=== PATIENT | female | born 1955 | race Caucasian/White ===

== ENCOUNTER 2020-12-27 08:56 | Outpatient (CLI) | payer MEDICARE, SELFPAY ==
--- NOTE | ~2020-12-27 | US_ITS ---
EXAMINATION: US thyroid EXAM DATE: 12/27/2020 09:55 INDICATION: E04.1 - Nontoxic single thyroid nodule. TECHNIQUE: Multiple grayscale and Doppler images of the thyroid were obtained (by a technologist who performed the scan) and subsequently reviewed. Individual nodules and recommendations may be reporte d in accordance with TI-RADS system as designated by the 2017 ACR White Paper TI-RADS committee. Comp chris is made to prior examination from 08/23/2017. FINDINGS: The right thyroid lobe measures 6.5 x 2.0 x 3.2 cm, the left measuring 6.1 x 1.4 x 2.2 cm. These rosita urements are moderately enlarged. Mildly diffusely heterogeneous thyroid echogenicity with multiple t hyroid nodules bilaterally. The largest 2 nodules are in the right thyroid lobe, with some scattered echogenic foci along the wal ls of cystic portions, category TR 4. Both demonstrate hypervascularity. The right thyroid lobe super ior nodule measures 2.6 x 1.4 x 2.3 cm (previously 3.1 x 1.3 x 2.5) and more inferior nodule measures 2.5 x 1.6 x 2.0 cm (previously 2.0 x 1.4 x 2.7). These dimensions are not significantly changed acco unting for differences in technique. The left thyroid lobe nodules are subcentimeter. IMPRESSION: Multinodular goiter, nodule size unchanged. Largest 2 could be considered for ultrasound-guided biops y. Reviewed, dictated and finalized at location A. IMPRESSION: Multinodular goiter, nodule size unchanged. Largest 2 could be considered for u ltrasound-guided biopsy.
--- NOTE | ~2020-12-27 | MM_ITS ---
EXAMINATION: MM screening juanpablo BI w gold HISTORY: Screening TECHNIQUE: Craniocaudal and mediolateral oblique 3-D tomosynthesis images were obtained and synthetic 2-D images were generated. CAD analysis was submitted and interpreted. COMPARISON: Comparison to multiple prior studies sequentially, with oldest reviewed study dated 07/26. BREAST PARENCHYMAL COMPOSITION: There are scattered areas of fibroglandular density. FINDINGS: There is a developing mass in the upper aspect of the right breast measuring 3 mm on MLO vi ew. The left breast is stable without evidence for malignancy. IMPRESSION: 1. Developing right breast mass. 2. Additional mammographic views and possible breast ultrasound are recommended. BI-RADS Category 0: Incomplete: Needs additional imaging evaluation. Reviewed, dictated and finalized at location A. IMPRESSION: 1. Developing right breast mass. 2. Additional mammographic views and possible breast ultrasound are recommended . BI-RADS Category 0: Incomplete: Needs additional imaging evaluation.
--- NOTE | ~2020-12-27 | DEXA_ITS ---
Bone Density Report Name: Kylie Galo Age: 65 Sex: Female Ethnicity: White Date of : 1955 Indication: postmenopausal; height loss; prior fracture; Referring Provider: EMEKA KRISHNAN Study: Bone densitometry was performed. Exam Date: December 27, 2020 Accession number: [id number] Bone Density: Region BMD T-score Z-score Classification AP Spine (L1-L4) 0.936 -1.0 0.8 Normal Femoral Neck (Left) 0.672 -1.6 -0.1 Osteopenia Total Hip (Left) 0.768 -1.4 -0.2 Osteopenia Total Hip Bilateral Avg 0.737 -1.7 -0.4 Osteopenia Femoral Neck (Right) 0.680 -1.5 0.0 Osteopenia Total Hip (Right) 0.705 -1.9 -0.7 Osteopenia World Health Organization criteria for BMD impression classify patients as: Normal (T-score at or above -1.0), Osteopenia (T-score between -1.0 and -2.5), or Osteoporosis (T-score at or below -2.5). 10-year Fracture Risk(1): Major Osteoporotic Fracture 15% Hip Fracture 1.6% Reported Risk Factors: [place] (), Neck BMD=0.680, BMI=28.5, previous fracture (1) FRAX(R) Version 3.08. Fracture probability calculated for an untreated patient. Fracture probability may be lower if the patient has received treatment. Clinical Information Provided by Patient: Has had a low trauma fracture Patient maximum height was 65 Menopause Age: 55 No regular weight bearing exercise Onset of menses at age 12 Number of children 3 Impression: The patient has low bone mass, based on the Right Total Hip T-score. The patient has an estimated ten-year risk of hip fracture of 1.6% and an estimated ten-year risk of major fracture of 15%, based on the WHO FRAX algorithm. The patient has risk factors, including: previous fracture. Discussion: BONE DENSITY IS LOW AT ONE OR MORE SKELETAL SITES. This patient's lowest T-score is low at one or more skeletal sites. It meets the World Health Organization's (WHO) criteria for ?low bone mass? (T-score between -1.0 and -2.5). The patient's 10-year risk of fracture as calculated by FRAX is less than the threshold where pharmacological therapy is recommended by the National Osteoporosis Foundation (NOF). However, all treatment decisions require clinical judgment and consideration of individual patient factors, including patient preferences, comorbidities, previous drug use, risk factors not captured in the FRAX model (e.g., frailty, falls, vitamin D deficiency, increased bone turnover, interval significant decline in bone density) and possible under or overestimation of fracture risk by FRAX. The patient should follow a healthful lifestyle (good nutrition with adequate calcium and vitamin D, and appropriate weight-bearing exercise). Follow-Up: Consider repeating this study in 2 to 3 years to reassess this patient's status, or sooner if there is some new clinical indication. Reported
--- NOTE | ~2020-12-27 | XR_ITS ---
EXAMINATION: XR hand LT min 3V DATE: 12/27/2020 10:04 INDICATION: Fall with pain at the left fifth digit. TECHNIQUE: Posteroanterior, oblique and lateral views of the left hand were obtained. COMPARISON: None. FINDINGS: Diffuse osteopenia. Alignment is normal. No fracture. Polyarticular osteoarthritis, mild to moderate severity at the first carpometacarpal joint and mild at the wrist, midcarpal, triscaphe and multiple metacarpophalangeal and interphalangeal joints. Soft tissues are unremarkable. IMPRESSION: 1. 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 No acute osseous abnormality. Reviewed, dictated and finalized at location A. IMPRESSION: 1. Polyarticular osteoarthritis throughout the left hand and wrist, mild to mod erate at the first carpometacarpal joint and otherwise mild. No acute osseous a bnormality.
--- NOTE | ~2020-12-27 | XR_ITS ---
EXAMINATION: XR lumbar spine min 4V DATE: 12/27/2020 10:04 INDICATION: Low back pain TECHNIQUE: Anteroposterior, lateral, and bilateral oblique views of the lumbar spine, and cone-down l ateral view of the lumbosacral junction were obtained. COMPARISON: None. FINDINGS: There is no fracture, dislocation, or subluxation. The vertebral body heights and alignment are normal. There is moderate loss of intervertebral disc space height at L5-S1. Small degenerative osteophytes project from the anterior endplates of multiple vertebral bodies. Moderate to severe face t osteoarthritis is present in L4-5 and L5-S1. The bowel gas pattern is normal. There is a right pelv ic phlebolith. Severe right hip osteoarthritis is noted. IMPRESSION: 1. Moderate lower lumbar spondylosis without acute findings. Reviewed, dictated and finalized at location B.
--- NOTE | ~2020-12-27 | XR_ITS ---
EXAMINATION: XR hip RT min 2V DATE: 12/27/2020 10:04 INDICATION: Right hip pain. TECHNIQUE: 2 views of right hip were obtained. COMPARISON: Right hip radiographs 04/01/2018 FINDINGS: Bone alignment is normal. No fracture. There is severe right hip osteoarthritis. IMPRESSION: 1. Severe right hip osteoarthritis, worsened from 04/01/2018. Reviewed, dictated and finalized at location A.
== END 2020-12-27 08:57 | disposition home or self-care (01) ==
LOC: ANHIMG 09:00
PROVIDERS: PCP Family Medicine; Visit Provider Family Medicine
DX: Z12.31 Encounter for screening mammogram for malignant neoplasm of breast (principal); Z78.0 Asymptomatic menopausal state; R29.6 Repeated falls; E04.2 Nontoxic multinodular goiter; M47.896 Other spondylosis, lumbar region; M19.042 Primary osteoarthritis, left hand; M16.11 Unilateral primary osteoarthritis, right hip; R92.8 Other abnormal and inconclusive findings on diagnostic imaging of breast; M85.852 Other specified disorders of bone density and structure, left thigh; M85.851 Other specified disorders of bone density and structure, right thigh
CPT/HCPCS: 72110; 73130; 73502; 76536; 77063; 77067; 77080

== ENCOUNTER 2021-02-01 10:55 | Outpatient (CLI) | payer MEDICARE, SELFPAY ==
--- NOTE | ~2021-02-01 | MMUS_ITS ---
EXAMINATION: MM diagnostic mammo unilat RT, US breast RT limited HISTORY: Follow-up right breast mass TECHNIQUE: Additional 3-D tomosynthesis images of right were performed and synthetic 2-D images were generated. CAD analysis was submitted and interpreted. High resolution Limited right breast ultrasoun d was performed. COMPARISON: Comparison to multiple prior studies sequentially, with oldest reviewed study dated 07/26. BREAST PARENCHYMAL COMPOSITION: Breast composed of scattered areas of fibroglandular density. FINDINGS: MAMMOGRAPHIC FINDINGS: There are no suspicious masses, calcifications or architectural distortion to suggest malignancy. ULTRASOUND: Right breast ultrasound: At 12:00, 2 cm from the nipple, there is a 3 mm cyst. No suspicious masses t o suggest malignancy. IMPRESSION: 1. No evidence for malignancy in the right breast. 2. Routine yearly screening mammogram and regular clinical breast examination are recommended. BI-RADS Category 2: Benign finding(s). Reviewed, dictated and finalized at location A. IMPRESSION: 1. No evidence for malignancy in the right breast. 2. Routine yearly screening mammogram and regular clinical breast examination a re recommended. BI-RADS Category 2: Benign finding(s).
== END 2021-02-01 10:56 | disposition home or self-care (01) ==
PROVIDERS: PCP Family Medicine; Visit Provider Physician Assistant
DX: R92.8 Other abnormal and inconclusive findings on diagnostic imaging of breast (principal)
CPT/HCPCS: 76642; 77065

== ENCOUNTER 2021-03-24 11:22 | Outpatient (CLI) | payer MEDICARE, SELFPAY ==
[2021-03-24 12:48] LABS: Thyroid Stimulating Hormone 0.201 uIU/mL (0.465-4.680)
[2021-03-24 13:33] LABS: Free T4 Free Thyroxine 1.15 ng/mL (0.78-2.19)
[2021-03-27 07:34] LABS: Triiodothyronine T3 Free 3.2 pg/mL (2.3-4.2)
[2021-03-29 14:15] LABS: Thyroid Stimulating Immunoglob <89 % baseline (<140)
== END 2021-03-24 11:23 | disposition home or self-care (01) ==
PROVIDERS: PCP Family Medicine; Visit Provider Internal Medicine Endocrinology, Diabetes & Metabolism
DX: E04.1 Nontoxic single thyroid nodule (principal); E05.90 Thyrotoxicosis, unspecified without thyrotoxic crisis or storm
CPT/HCPCS: 36415; 84439; 84443; 84445; 84481

== ENCOUNTER 2021-04-04 13:29 | Outpatient (CLI) | payer MEDICARE, SELFPAY ==
--- NOTE | ~2021-04-04 | XR_ITS ---
EXAMINATION: XR lg joint inject/asp w image DATE: 04/04/2021 14:29 INDICATION: Right hip arthritis. TECHNIQUE: A time-out was performed to verify the patient's name, date of , and procedure to b e performed. The procedure including the risks, benefits, and alternatives was discussed with the pat ient. Risks discussed included bleeding and infection. The patient understood the risks and agreed to proceed. The skin overlying the right hip joint was prepped and draped in usual sterile fashion. A nesthetic was administered with 1% lidocaine subcutaneously. A 22 G needle was advanced under fluoro scopic guidance into the joint. Injection of 1 mL of Omnipaque 240 confirmed intra-articular positio n of the needle. Subsequently, injectate consisting of 2 mL 0.5% bupivacaine and 1 mL 80 mg/mL Depo- Medrol was instilled. The needle was removed and the entry site was cleaned and dressed. There were no immediate complications. Fluoroscopy exposure time was 0.0 minutes. The total number of images wa s 2. FINDINGS: Real-time fluoroscopy demonstrates the needle in the right hip joint. Patient's pain prior to procedure:11/08. Patient's pain following the procedure: 07/11. IMPRESSION: 1. Fluoroscopy guided right hip joint injection of local anesthetic and steroid with decrease in the patient's presenting pain. Reviewed, dictated and finalized at location A.
== END 2021-04-04 13:30 | disposition home or self-care (01) ==
LOC: ANHIMG 13:36
PROVIDERS: PCP Family Medicine; Visit Provider Nurse Practitioner Family
DX: M16.11 Unilateral primary osteoarthritis, right hip (principal)
CPT/HCPCS: 20610; 77002; J1040; Q9966

== ENCOUNTER 2021-04-05 13:37 | Outpatient (CLI) | payer MEDICARE, SELFPAY ==
--- NOTE | ~2021-04-05 | NM_ITS ---
EXAMINATION: NM thyroid scan w uptake DATE: 04/06/2021 16:12 INDICATION: Subclinical hyperthyroidism. Thyroid nodules. COMPARISON: Thyroid ultrasound 12/27/2020 TECHNIQUE: 0.348 mCi I-123 was administered orally. Scintigraphic images of the thyroid gland were o btained at 24 hours. Thyroid uptake was calculated by the technologist. FINDINGS: The thyroid uptake is 21% (normal 10-30%), with the right lobe measuring 16% uptake and the left 6%. There is no focal area of decreased or increased activity to suggest hypofunctioning or hyperfunction ing nodule. The right thyroid lobe is larger than the left by ultrasound. IMPRESSION: 1. Normal thyroid scintigraphy and 24-hour iodine uptake. Reviewed, dictated and finalized at location A.
== END 2021-04-05 13:38 | disposition home or self-care (01) ==
PROVIDERS: PCP Family Medicine; Visit Provider Internal Medicine Endocrinology, Diabetes & Metabolism
DX: E04.9 Nontoxic goiter, unspecified (principal); E05.90 Thyrotoxicosis, unspecified without thyrotoxic crisis or storm
CPT/HCPCS: 78014; A9516

== ENCOUNTER 2021-04-14 02:18 | Day surgery (SDC) | payer MEDICARE, SELFPAY ==
[2021-04-04 10:16] VITALS: BMI 28.6
--- NOTE | 2021-04-12 10:36 | PM.IMHP ---
H&P: HPI History of Present Illness Date/Time: 04/12/21 10:36 Chief Complaint: Left foot pain Narrative: Pt states that she noticed pain in her Lt 2nd and 5th toes about 3-4mo ago. Pt states no injury at that time, however, she states that she has stubbed her Lt 2nd toe several times. Pt states that her 5th toe has a bunionette forming and is starting to become painful with activity. Pt states that she has had inserts made several years ago from [employer]. Pt states that the inserts do help, but they are worn. Pt also denies any numbness/tingling or radiation of pain. Pt has history of bilateral plantar fascia injections by Dr. Allen in 2006 and had bilateral knee arthroscopies by him in 2005. Location: Left 2nd toe and 5th toe Duration: 3-4 months Characteristics of symptom or complaint: pain Aggravating or associated factors: prolonged activity Relieving factors: Rest, tylenol arthritis Review of Systems Constitutional: Constitutional: Denies fever(s) Eyes: Eyes: Denies blurry vision ENT: Reports Normal hearing present Cardiovascular: Cardiovascular: Denies chest pain and Denies dyspnea Respiratory: Respiratory: Denies dyspnea and Denies wheezing Gastrointestinal: Gastrointestinal: Denies abdominal pain Genitourinary: Genitourinary: Denies urinary urgency Musculoskeletal: Musculoskeletal: Reports as per HPI and Denies numbness Integumentary/Breasts: Skin/Breast: Denies changing lesions and Denies sores Neurologic: Reports Normal hearing present, Denies behavioral changes, Denies confusion, Denies numbness and Denies convulsions Psychiatric: Psychiatric: Denies behavioral changes, Denies confusion and Denies hallucinations Endocrine: Endocrine: Denies heat intolerance Hematologic/Lymphatic: Hematologic/Lymphatic: Denies easy bleeding Allergic/Immunologic: Allergic/Immunologic: Denies wheezing PMFSH Past Medical History Medical History Arthritis Bunionette of left foot Clawtoe, acquired Degenerative joint disease (DJD) of hip Frequent falls Goiter Hammertoe of second toe of left foot History of anesthesia problem Low back pain Mixed hyperlipidemia Seasonal allergies Thyroid Nodule Surgical History Surgical History H/O arthroscopic knee surgery Right knee 2005 Dr. Allen Left knee 2006 Dr. Alejandro H/O breast biopsy 2003 H/O dilation and curettage 1989 Dr. Garcia H/O tubal ligation 1983 Dr. Ruiz History of tonsillectomy 1963 Family History Family History Father CHF (congestive heart failure) Skin cancer Mother CHF (congestive heart failure) Atrial fibrillation Hypertension Cerebrovascular accident Sibling Childhood asthma Daughter Hypertension Diabetes mellitus Cerebrovascular accident Other Arthritis Asthma Heart disease Thyroid disease Social History Social History Smoking status: Never smoker Second hand tobacco smoke exposure: Yes Alcohol intake: never Substance use: never Substance use type: does not use Additional living arrangements comments: SON & AUNT WITH PT Gender identity (if verbalized by the patient): Female Spiritual care concerns: No Agree to blood products: Yes Meds Home Medications and Allergies Home Medications Medication Instructions Recorded Confirmed Type aspirin 81 mg tablet,delayed 81 mg PO DAILY 11/15/20 04/04/21 History release carboxymethyl 0.5 %-glycerin 1 1 drp EACH EYE Q2-4H PRN 11/15/20 04/04/21 History %-polysorb 80 0.5 %-PF eye dropperette diclofenac sodium 1 % topical gel 2 g TOPICAL QID PRN 11/15/20 04/04/21 History docusate sodium 100 mg capsule 100 mg PO DAILY 11/15/20 04/04/21 History fluticasone propionate 50 2 spray INTRANASAL HS 11/15/20 04/04/21 History mcg/actuation nasal
--- NOTE | 2021-04-13 14:07 | WPDANESEPPF ---
Anes - Initial Pre Proc Eval Procedure: Operation Date: 04/14/21 11:00 Proposed Procedures p Left Second Toe Crossover Correction with Arthrodesis - Bijan Muñoz MD s Left Bunionette Correction - Bijan Muñoz MD Date/Time: 04/13/21 14:07 Surgeon: Bijan Muñoz MD Pre Op Diagnosis: Left second cross over toe, bunionette Patient Data Age: 65 Gender: F Height: 1.65 m Weight: 78 kg Allergies Allergy/AdvReac Type Severity Reaction Status Date / Time poison dirk extract Allergy Mild Rash Verified 04/14/21 09:13 thiopental [From Pentothal] AdvReac Severe SEVERE/PROLONGED Verified 04/14/21 09:13 NAUSEA AND VOMITING Home Medications Medication Instructions Recorded Confirmed Type aspirin 81 mg tablet,delayed 81 mg PO DAILY 11/15/20 04/14/21 History release carboxymethyl 0.5 %-glycerin 1 1 drp EACH EYE Q2-4H PRN 11/15/20 04/14/21 History %-polysorb 80 0.5 %-PF eye dropperette diclofenac sodium 1 % topical gel 2 g TOPICAL QID PRN 11/15/20 04/04/21 History docusate sodium 100 mg capsule 100 mg PO DAILY 11/15/20 04/14/21 History fluticasone propionate 50 2 spray INTRANASAL HS 11/15/20 04/14/21 History mcg/actuation nasal spray,suspension acetaminophen 650 mg 1,300 mg PO Q12H PRN tablet 02/16/21 04/14/21 History tablet,extended release cholecalciferol (vitamin D3) 125 mcg PO DAILY 04/04/21 04/14/21 History Patient hx anesthesia problems: none Family hx anesthesia problems: none Results Review: All pre-operative results and documents have been reviewed as part of the pre-operative evaluation. [facility] Past Medical History Medical History Arthritis Bunionette of left foot Clawtoe, acquired Degenerative joint disease (DJD) of hip Frequent falls Goiter Hammertoe of second toe of left foot History of anesthesia problem Low back pain Mixed hyperlipidemia Seasonal allergies Thyroid Nodule Surgical History Surgical History H/O arthroscopic knee surgery Right knee 2006 Dr. Allne Left knee 2007 Dr. Allen H/O breast biopsy 2003 H/O dilation and curettage 1989 Dr. Garcia H/O tubal ligation 1983 Dr. Ruiz History of tonsillectomy 1963 Family History Family History Father CHF (congestive heart failure) Skin cancer Mother CHF (congestive heart failure) Atrial fibrillation Hypertension Cerebrovascular accident Sibling Childhood asthma Daughter Hypertension Diabetes mellitus Cerebrovascular accident Other Arthritis Asthma Heart disease Thyroid disease Social History Social History Second hand tobacco smoke exposure: No Alcohol intake: never Substance use: never Substance use type: does not use Living arrangements: with family Additional living arrangements comments: SON & AUNT WITH PT Gender identity (if verbalized by the patient): Female Spiritual care concerns: No Agree to blood products: Yes Anes - Eval Final PreProcedure Day of Procedure 04/13/21 14:07 Patient weight: overweight Heart: regular rate and rhythm Lungs: clear to auscultation and normal air movement Airway: Mallampati scale class II Neurological: alert and oriented Last oral intake: >/= 8 hours ASA classification: II Emergent: no Anesthetic plan: proceed Anesthesia type and monitoring: general LMA Results Review: All pre-operative results and documents have been reviewed as part of the pre-operative evaluation. Informed Consent: The patient's anesthetic plan and its attendant risks and benefits were discussed with the patient/family/POA. Questions were solicited and answers provided to the satisfaction of the patient/family/POA.
[2021-04-14] VITALS (8 sets, daily range): BP systolic 111–131; BP diastolic 59–67; PULSE 60–79; RESP 11–20; TEMP 36.3–36.7; O2SAT 95–100
--- NOTE | ~2021-04-14 | XR_ITS ---
EXAMINATION: XR surgery orthopedic DATE: 04/14/2021 12:45 INDICATION: Left foot arthrodesis TECHNIQUE: 5 fluoroscopic images of the left foot were obtained during procedure performed by Dr. Floyd pino. Radiologist was not present for the imaging or procedure. The amount of fluoroscopy time used d uring this procedure was 0.1 minutes. COMPARISON: Left foot radiographs dated 03/09/2021 FINDINGS: Interval arthrodesis with fixation device at the left second proximal interphalangeal joint. Lucent g uide pin tract extending through the more distal middle and distal phalanges. Osteotomy with fixation screw at the neck of the second metatarsal. Additional osteotomy without fixation at the neck of the fifth metatarsal. Approximately one half shaft width medial displacement of the unfixed head of the fifth metatarsal. Alignment is otherwise near-anatomic. Suspected postoperative gas in the soft tissu es surrounding the sites of operation. Mild osteoarthritis at the first metatarsophalangeal and sever al distal interphalangeal joints. IMPRESSION: 1. Fluoroscopy utilized during orthopedic procedure at the left forefoot as detailed above. See proce dure note for further detail. Reviewed, dictated and finalized at location A. IMPRESSION: 1. Fluoroscopy utilized during orthopedic procedure at the left forefoot as det isabelle above. See procedure note for further detail.
--- NOTE | 2021-04-14 07:09 | WPDHPUPDATE1 ---
History and Physical Update Update Date/Time: 04/14/21 07:09 History and Physical has been reviewed, including an updated exam of the patient. There are NO changes in the patient's condition. Risks, benefits, and alternatives have been discussed and questions answered. Patient agrees to proceed with procedure.
[2021-04-14] MEDS: ACETAMINOPHEN 500 MG TABLET 1000 MG PO (09:16)
[2021-04-14] MEDS: LACTATED RINGERS 1,000 ML 30 ML IV CONT ×2 (09:20→12:52)
[2021-04-14] MEDS: KETOROLAC 15 MG/ML VIAL (*BKC) IV PUSH (09:27)
[2021-04-14] MEDS: ceFAZolin 2 GM/D5W 50 ML 2 GM/50 ML BAG IVPB (11:05)
--- NOTE | 2021-04-14 13:00 | W.PM.PROC2 ---
Procedure Note - Detailed Date of Procedure 04/14/21 Pre-op Diagnosis Left second cross over toe, left 2nd hammertoe, bunionette Post-op Diagnosis same Procedure Performed Left foot 2nd crossover toe reconstruction with metatarsal osteotomy, hammertoe reconstruction with interphalangeal arthrodesis, bunionette correction with 5th metatarsal osteotomy Surgeon Bijan Muñoz MD Cloth Cutter 1st optometry assistant Anesthesia general Indications 65-year-old woman with 2nd toe deformity and bunionette deformity. Pain with daily activity. Difficulty with shoe wear. Has failed strapping and padding for the toes. Presents now for operative treatment. Description of Procedure What was done: Patient identified in the preoperative holding. Informed consent given. Operative extremity marked. Patient received intravenous antibiotics. Patient brought to the operating room where underwent general anesthetic by anesthesia team. Positioned supine on operating room table. Time-out performed confirming the patient, site of the surgery and the plan. Left foot prepped draped usual sterile surgical fashion using a ChloraPrep skin solution. Foot ankle exsanguinated and calf tourniquet inflated to 225 mmHg. Longitudinal incision made over the left lateral eminence of the 5th metatarsal with 15 blade knife. Hemostasis controlled electrocautery. Neuro sensory elements identified and retracted. Lateral capsulotomy performed. Joint inspected and noted to have minimal degenerative changes. Prominence of the lateral eminence noted. Sagittal saw used to remove the lateral eminence. Chevron shaped osteotomy from lateral to medial at the distal aspect of the metatarsal. The capital fragment then displaced medially and impacted back onto the shaft. Fixation with a 2.0 mm treatment pinned. Image intensification confirmed alignment. Overriding lateral bone resected with a bone cutter. Capsule repaired with 2-0 Vicryl interrupted suture. Subcutaneous tissue repaired with 3-0 Monocryl interrupted suture and skin repaired with 4-0 nylon running suture. Second toe addressed. Dorsal longitudinal incision made over the 2nd metatarsophalangeal joint with a 15 blade knife. Hemostasis controlled electrocautery. Dorsal capsulotomy performed. Transverse or horizontal type osteotomy then made from distal to proximal through the metatarsal head. Capital fragment then displaced proximally and provisionally pinned. Position checked with image intensification and fixed with a 2.7 mm twist off screw. Plantar plate inspected and the lateral aspect noted to be torn. Rest of the plantar plate released from the proximal phalanx. FiberWire suture then placed into the plantar plate and passed into drill holes in the base of the proximal phalanx to repair the plantar plate. Wound thoroughly irrigated capsule closed with 3-0 Monocryl interrupted suture. Dorsal capsulotomy performed over the proximal interphalangeal joint. Medial lateral collateral ligaments released. Distal proximal phalanx and proximal middle phalanx resected with bone soft sugar cutter rongeur. This was realigned and fixed with the 16 mm hammertoe implant. Image intensification confirmed final position of the toe. Wounds thoroughly irrigated and soft tissue closed with 3-0 Monocryl interrupted suture. Skin repaired with 4-0 nylon running suture. Sterile dressing applied. The patient was then woken from anesthesia, extubated and taken to the recovery room in stable condition. All sponge, needle, instrument counts were correct at the end of the case. Implants Arthrex 2.0 mm trim it pin x1. 2.0 mm twist off screw x1, 16 mm hammertoe implant Estimated Blood Loss -5.0 Tourniquet Time 80 Drains No Packing No Pathology none sent Complications None Condition stable Disposition PACU
[2021-04-14] MEDS: ONDANSETRON INJ 4 MG/2 ML VIAL IV PUSH (14:10)
== END 2021-04-14 14:41 | disposition home or self-care (01) ==
PROVIDERS: PCP Family Medicine; Visit Provider Orthopaedic Surgery
PROC: (CPT 28285; principal; 2021-04-14 11:00)
PROC: (CPT 28299; 2021-04-14 11:00)
DX: M20.42 Other hammer toe(s) (acquired), left foot (principal); M21.622 Bunionette of left foot; M20.5X2 Other deformities of toe(s) (acquired), left foot; E78.2 Mixed hyperlipidemia; E04.9 Nontoxic goiter, unspecified; Z79.82 Long term (current) use of aspirin
CPT/HCPCS: 28285; 28110; 28308; A9270; C1713; C1769; J0690; J1100; J1170; J1885; J2250; J2405; J2704; J3010; J7120

== ENCOUNTER 2021-05-03 10:53 | Outpatient (CLI) | payer MEDICARE, SELFPAY ==
--- NOTE | 2021-05-03 11:02 | ECG_ITS ---
Measurements Intervals [place] Rate: 88 P: 64 MT: 186 QRS: -27 QRSD: 98 T: 56 QT: 355 QTc: 432 Interpretive Statements SINUS RHYTHM FREQUENT VENTRICULAR PREMATURE COMPLEXES POSSIBLE LEFT ATRIAL ENLARGEMENT INCOMPLETE RIGHT BUNDLE BRANCH BLOCK DELAYED PRECORDIAL R/S TRANSITION ABNORMAL ECG Electronically Signed On 05-03-2021 11:51:30 CDT by Hesham Donald D.O.
== END 2021-05-03 10:54 | disposition home or self-care (01) ==
PROVIDERS: PCP Family Medicine; Visit Provider Family Medicine
DX: E78.2 Mixed hyperlipidemia (principal); Z01.818 Encounter for other preprocedural examination; I45.10 Unspecified right bundle-branch block
CPT/HCPCS: 93005

== ENCOUNTER 2021-05-24 10:09 | Outpatient (CLI) | payer MEDICARE, SELFPAY ==
[2021-05-24 12:10] LABS: Free T4 Free Thyroxine 1.31 ng/mL (0.78-2.19)
[2021-05-24 12:25] LABS: Thyroid Stimulating Hormone 0.265 uIU/mL (0.465-4.680)
[2021-05-27 09:40] LABS: Triiodothyronine T3 Free 3.4 pg/mL (2.3-4.2)
== END 2021-05-24 10:10 | disposition home or self-care (01) ==
PROVIDERS: PCP Family Medicine; Visit Provider Internal Medicine Endocrinology, Diabetes & Metabolism
DX: E04.9 Nontoxic goiter, unspecified (principal); E05.90 Thyrotoxicosis, unspecified without thyrotoxic crisis or storm
CPT/HCPCS: 36415; 84439; 84443; 84481

== ENCOUNTER 2021-07-25 10:01 | Outpatient (CLI) | payer MEDICARE, SELFPAY ==
[2021-07-25 11:49] LABS: Basophils Absolute Auto 0.1 K/mm3 (0.0-0.1); Basophils Percent Auto 0.9 % (0.2-1.2); Eosinophils Absolute Auto 0.3 K/mm3 (0-0.3); Eosinophils Percent Auto 4.7 % (0-4.4); Hematocrit 45.1 % (37.0-47.0); Hemoglobin 14.4 g/dL (12.0-15.0); Immature Granulocyte Absolute 0.01 K/mm3 (0.00-0.031); Immature Granulocyte Percent A 0.2 % (0-0.5); Lymphocytes Percent Auto 21.1 % (18.3-44.2); Mean Corpuscular HGB Conc 31.9 g/dl (32-36); Mean Corpuscular Hemoglobin 29.3 pg (26-34); Mean Corpuscular Volume 91.7 fl (80-100); Mean Platelet Volume 9.6 fl (7.4-10.4); Monocytes Absolute Auto 0.6 K/mm3 (0.1-0.6); Monocytes Percent Auto 8.3 % (2.6-8.5); Neutrophils Absolute Auto 4.3 K/mm3 (1.3-6.7); Neutrophils Percent Auto 64.8 % (45.5-73.1); Platelet Count Result 275 k/mm3 (150-375); Red Blood Count 4.92 M/mm3 (4.2-5.4); Red Cell Distribution Width 11.8 % (11.5-14.5); White Blood Count 6.6 K/mm3 (4.5-10.0)
[2021-07-25 12:07] LABS: Albumin Level 4.8 g/dL (3.5-5.1); Anion Gap 8 mmol/L (8-16); Blood Urea Nitrogen 17 mg/dL (7-17); Carbon Dioxide 28 mmol/L (22-30); Chloride 103 mmol/L (98-107); Estimated Glomerular Filt Rate > 60; Glucose 99 mg/dL (65-110); Potassium 4.2 mmol/L (3.4-5.0); Sodium 139 mmol/L (137-145)
[2021-07-25 12:08] LABS: INR 0.9; Prothrombin Time 12.3 Seconds (11.1-14.7)
[2021-07-25 12:17] LABS: Urine Cotinine NEGATIVE
[2021-07-25 12:18] LABS: Hemoglobin A1C 5.1 % (<5.7)
[2021-07-25 12:51] LABS: Add Urine Microscopic? YES; Appearance Urine Clear (Clear); Bilirubin Urine Negative (Negative); Blood Urine 1+ (Negative); Color Urine Yellow (Yellow); Glucose Urine UA Negative (Negative); Ketones Urine Negative (Negative); Leukocyte Esterase Ur Negative LEU/UL (Negative); Mucus Urine Rare /lpf; Nitrate Urine Negative (Negative); Protein Urine Negative (Negative); RBC Urine 0-2 /hpf (0-2); Specific Grav Ur 1.014 (1.001-1.035); Squamous Epithelial Cell Urine Rare /hpf (Few); Urobilinogen Urine Negative mg/dL (<2.0); WBC Urine 0-3 /hpf
== END 2021-07-25 10:02 | disposition home or self-care (01) ==
LOC: ANHSURGERY 10:05
PROVIDERS: PCP Family Medicine; Visit Provider Orthopaedic Surgery
DX: M16.11 Unilateral primary osteoarthritis, right hip (principal); Z01.818 Encounter for other preprocedural examination
CPT/HCPCS: 80048; 80307; 81001; 82040; 83036; 85025; 85610; 85730; 87081

== ENCOUNTER 2021-08-08 07:27 | Outpatient (CLI) | payer MEDICARE, SELFPAY ==
[2021-08-08 08:58] LABS: Free T4 Free Thyroxine 1.13 ng/mL (0.78-2.19)
[2021-08-08 09:05] LABS: Thyroid Stimulating Hormone 0.186 uIU/mL (0.465-4.680)
== END 2021-08-08 07:28 | disposition home or self-care (01) ==
PROVIDERS: PCP Family Medicine; Visit Provider Internal Medicine Endocrinology, Diabetes & Metabolism
DX: E05.90 Thyrotoxicosis, unspecified without thyrotoxic crisis or storm (principal); E04.1 Nontoxic single thyroid nodule
CPT/HCPCS: 36415; 84439; 84443; 84481

== ENCOUNTER 2021-08-09 11:50 | Inpatient (IN) | payer MEDICARE, SELFPAY ==
[2021-07-25 10:18] VITALS: BP 149/71; PULSE 83; RESP 16; TEMP 36.5; O2SAT 96; BMI 29.7
--- NOTE | 2021-07-25 10:37 | PC.NURSE ---
Report to the Outpatient Waiting Room, entrance under the green pavilion located off [facility], at time __6:00AM on date ___08/09/21____. OR Time: ___7:30AM . - You and your visitor will be asked a series of questions to screen for COVID 19 for your protection. - A mask is required within the hospital. - Only one visitor is allowed at this time. Patient visitors will be guided where to wait when not with patient. Preoperative COVID Testing Requirements: No COVID Test needed if: (proof is required; if not received patient will have Rapid Test prior to entry) - Patient has received COVID Vaccine at least 14 days prior to procedure date or - Patient has positive COVID test result within last 90 days of surgery date. COVID Test needed if above criteria is not met If not COVID vaccinated a COVID test must be conducted within 72 hours of surgery and patient is asked to isolate self from time of testing until procedure. You will go to the [facility] for your COVID testing. The [facility] site is located at the corner of [address] [facility]. You will only be called if COVID results are positive and your surgeon may reschedule your elective surgery date. Patients may have clear liquids (water, carbonated beverages, clear teas, apple juice) until 3 hours prior to surgery with a maximum of 20 ounces. - No food from midnight until time of surgery - Infants may have breast milk until 4 hours before surgery, infant formula 6 hours prior to surgery. - Children will be allowed to drink immediately following surgery. If applicable, please bring a bottle or sippy cup to assist with drinking. Juice, water, soda, and popsicles are readily available. For infants on formula, please bring formula the day of surgery. Pacifiers are allowed. Take the following medications with a SIP of water the morning of surgery: ____NONE Medications to discontinue per physician ASPIRIN & ALL VITAMINS/SUPPLEMENTS-7 DAYS PRE-OP PER DR PALOMO Date to take last dose____08/02/21 Please no make-up, nail citizen of [place], hairspray, perfume, deodorant, or body powder the day of surgery. No jewelry (including any body piercings) or valuables the day of surgery, leave them at home. Please take a shower or bath the night before, or the morning of, surgery with an antibacterial soap. Wear comfortable, loose fitting clothing. Children are encouraged to wear pajamas. - Jewelry must be removed prior to entering the operating room. Rings and piercings that are not removed may be cut off. - The hospital will not accept responsibility for valuables. - Please leave all valuables, including medications, at home the day of surgery. If you are going home after surgery, a licensed tank driver must drive you home. - NO public transportation without another adult. - We recommend that an adult stay with you for 24 hours following discharge. - We also recommend that you do not drive, make important decision, drink alcoholic beverages, or take any drugs that were not prescribed by your health care provider for at least 24 hours after your discharge time. For Pediatric surgeries, we recommend two adults accompany the child home (only one inside the building at this time). Follow any additional instructions given to you from your surgeon. Telephone instructions given to __PATIENT and asked if any additional questions and then verbalized understanding. Patient advised to call surgeon office or pre surgery nurse liaison [phone] if any additional questions.
[2021-08-09] VITALS (17 sets, daily range): BP systolic 92–137; BP diastolic 47–65; PULSE 54–86; RESP 10–20; TEMP 36.1–37.7; O2SAT 93–100; BMI 29.9
--- NOTE | ~2021-08-09 | XR_ITS ---
XR hip RT 1V DATE: 08/09/2021 10:30 INDICATION: Right total hip arthroplasty TECHNIQUE: Portable AP postoperative view of right hip COMPARISON: None FINDINGS: Status post right femoral head and neck resection. Right total hip breath for plasty is not ed. There is expected postoperative mild subcutaneous emphysema. IMPRESSION: Status post right total hip arthroplasty Reviewed, dictated and finalized at location A. RACT WRITER
[2021-08-09] MEDS: LACTATED RINGERS 1,000 ML 30 ML IV CONT ×2 (06:25→10:17)
[2021-08-09] MEDS: ACETAMINOPHEN 500 MG TABLET 1000 MG PO (06:30)
[2021-08-09] MEDS: TRANEXAMIC ACID 1,000MG/ISO100 1,000 MG/100 ML BAG 200 MG IVPB (06:30)
--- NOTE | 2021-08-09 07:11 | WPDANESEPPF ---
Anes - Initial Pre Proc Eval Procedure: Operation Date: 08/09/21 07:30 Proposed Procedures p Right Total Hip Arthroplasty - Mitul Barry MD Date/Time: 08/09/21 07:11 Surgeon: Mitul Barry MD Pre Op Diagnosis: right hip DJD Patient Data Age: 66 Gender: F Height: 1.64 m Weight: 80.2 kg Last Vital Signs Temp 97.3 F L 08/09/21 06:13 Pulse 86 08/09/21 06:13 Resp 18 08/09/21 06:13 BP 137/65 08/09/21 06:13 Pulse Ox 100 08/09/21 06:13 Allergies Allergy/AdvReac Type Severity Reaction Status Date / Time thiopental [From Pentothal] AdvReac Severe SEVERE/PROLONGED Verified 08/09/21 06:12 NAUSEA AND VOMITING lisinopril AdvReac FELT LIKE Verified 08/09/21 06:12 PASSING OUT Home Medications Medication Instructions Recorded Confirmed Type aspirin 81 mg tablet,delayed 81 mg PO DAILY 11/15/20 08/09/21 History release carboxymethyl 0.5 %-glycerin 1 1 drp EACH EYE Q2-4H PRN 11/15/20 08/09/21 History %-polysorb 80 0.5 %-PF eye dropperette docusate sodium 100 mg capsule 100 mg PO DAILY 11/15/20 08/09/21 History fluticasone propionate 50 2 spray INTRANASAL HS 11/15/20 08/09/21 History mcg/actuation nasal spray,suspension acetaminophen 650 mg 1,300 mg PO Q12H PRN tablet 02/16/21 07/25/21 History tablet,extended release cholecalciferol (vitamin D3) 125 mcg PO DAILY 04/04/21 08/09/21 History Patient hx anesthesia problems: post op nausea/vomiting Family hx anesthesia problems: none Results Review: All pre-operative results and documents have been reviewed as part of the pre-operative evaluation. [facility] Past Medical History Medical History Arthritis Bunionette of left foot Clawtoe, acquired Degenerative joint disease (DJD) of hip Encounter for postoperative care Frequent falls Goiter Hammertoe of second toe of left foot History of anesthesia problem Low back pain Mixed hyperlipidemia Seasonal allergies Thyroid Nodule Surgical History Surgical History H/O arthroscopic knee surgery Right knee 2006 Dr. Allen Left knee 2007 Dr. Allen H/O breast biopsy 2003 H/O dilation and curettage 1989 Dr. Garcia H/O tubal ligation 1983 Dr. Ruiz History of tonsillectomy 1963 Family History Family History Father CHF (congestive heart failure) Skin cancer Mother CHF (congestive heart failure) Atrial fibrillation Hypertension Cerebrovascular accident Sibling Childhood asthma Daughter Hypertension Diabetes mellitus Cerebrovascular accident Other Arthritis Asthma Heart disease Thyroid disease Social History Social History Smoking status: Never smoker Second hand tobacco smoke exposure: Yes (40 YEARS) Alcohol intake: never Substance use: never Substance use type: does not use Living arrangements: with family Additional living arrangements comments: SON AND AUNT Gender identity (if verbalized by the patient): Female Spiritual care concerns: No Agree to blood products: Yes Anes - Eval Final PreProcedure Day of Procedure 08/09/21 07:11 Patient weight: overweight Heart: regular rate and rhythm Lungs: clear to auscultation Airway: Mallampati scale class II Neurological: alert and oriented Last oral intake: >/= 8 hours ASA classification: II Emergent: no Anesthetic plan: proceed Anesthesia type and monitoring: general ETT and standard monitoring Results Review: All pre-operative results and documents have been reviewed as part of the pre-operative evaluation. Informed Consent: The patient's anesthetic plan and its attendant risks and benefits were discussed with the patient/family/POA. Questions were solicited and answers provided to the satisfaction of the patient/family/POA.
[2021-08-09] MEDS: SCOPOLAMINE 1.5 MG PATCH TRANSDERM (07:15)
--- NOTE | 2021-08-09 07:22 | WPDHPUPDATE1 ---
History and Physical Update Update Date/Time: 08/09/21 07:22 History and Physical has been reviewed, including an updated exam of the patient. There are NO changes in the patient's condition. Risks, benefits, and alternatives have been discussed and questions answered. Patient agrees to proceed with procedure.
[2021-08-09] MEDS: ceFAZolin 2 GM/D5W 50 ML 2 GM/50 ML BAG IVPB ×3 (07:30→23:20)
[2021-08-09] MEDS: TRANEXAMIC ACID 1,000 MG/10 ML AMPUL 1000 MG IV PUSH (09:15)
--- NOTE | 2021-08-09 10:25 | W.PM.PROC2 ---
Procedure Note - Detailed Date of Procedure 08/09/21 Pre-op Diagnosis right hip DJD Post-op Diagnosis same Procedure Performed R JIGNA Surgeon Mitul Barry MD Anesthesia general Description of Procedure THE PATIENT WAS TAKEN TO THE OPERATING ROOM IN STABLE CONDITION AND WAS PLACED IN THE LATERAL DECUBITUS AND THE RIGHT LOWER EXTREMITY WAS PREPPED AND DRAPED IN THE STERILE FASHION. INCISION WAS MADE IN THE POSTERIOR LATERAL SIDE OF THE HIP, DOWN TO THE FASCIA LAYER. THE FASCIA WAS INCISED. THE HIP WAS EXPOSED. THE SHORT EXTERNAL ROTATORS WERE EXPOSED. THE SCIATIC NERVE WAS IDENTIFIED. THERE WAS A HIGH BIFURCATION OF THE NERVE. INCISION WAS MADE THROUGH THE SORT EXTERNAL ROTATORS AND THE CAPSULE OF THE HIP JOINT. THE HIP WAS DISLOCATED. AN OSTEOTOMY WAS MADE TO THE FEMORAL NECK ABOUT 1 CM PROXIMAL TO THE LESSER TROCHANTER. THE ACETABULUM WAS EXPOSED. THERE WAS SEVERE DJD SEEN. BEGINNING WITH A 44 REAMER THE ACETABULUM WAS REAMED TO 53 MM. A 53 MM TRIAL WAS PLACED IN 35 DEG OF ABDUCTION AND ANTEVERSION WAS IN ALIGNMENT WITH THE TRANS ACETABULAR LIGAMENT. THE FIT WAS EXCELLENT. THE TRIAL WAS REMOVED. A 54 MM BIOMET G7 COMPONENT WAS THEN TAPPED IN TO PLACE IN 35 DEG OF ABDUCTION AND ANTEVERSION IN ALIGNMENT WITH THE TRANSVERSE ACETABULAR LIGAMENT. THE FIT WAS EXCELLENT. THE ACETABULAR LINER WAS PLACED AND CHECKED FOR STABILITY. NEXT THE FEMUR WAS PREPARED WITH INITIAL CANAL FINDER THEN SEQUENTIAL BROACHING WITH A TAPERLOC HIP SYSTEM, UNTIL A 10 BROACH FIT WELL IN 15 OF ANTEVERSION. A +3 HIGH OFFSET NECK WITH 36 MM HEAD TRIAL WAS PLACED. THE SHUCK TEST WAS EXCELLENT AND THE STABILITY IN FLEXION AND ROTATION WAS EXCELLENT. LEG LENGTHS WERE GROSSLY EQUAL. TRIALS WERE REMOVED. A BIOMET TAPERLOC 10 STEM WAS PLACED WITH A HIGH OFFSET NECK THE FIT WAS EXCELLENT IN 15 DEG OF ANTEVERSION. A +3 CERAMIC 36 MM FEMORAL HEAD WAS PLACED. THE HIP WAS TRIALED AND THE STABILITY WAS EXCELLENT WERE THE LEG LENGTHS AND THE SHUCK TEST. THE WOUND WAS IRRIGATED WITH STERILE BETADINE AND WATER FOR 3 MIN. THEN WASHED AGAIN. THE CAPSULE AND THE EXTERNAL ROTATORS WERE APPROXIMATED WITH NUMBER 1 VICRYL. THE FASCIA WITH No 2 QUIL AND THE SUB CUTANEOUS LAYER WITH 2-0 ABSORBABLE SUTURE WITH A RUNNING 3-0 SUBCUTICULAR LAYER WELL. DERMABOND WAS PLACED AND STERILE DRESSING WAS APPLIED. PATIENT WAS PLACED BACK ON TO THE SUPINE POSITION AND WAS EXTUBATED Estimated Blood Loss 1,500 Drains No Complications No immediate complications Condition stable Disposition PACU
[2021-08-09] MEDS: fentaNYL CITRATE INJ (*CRX) 100 MCG/2 ML VIAL 25 MCG IV PUSH ×4 (10:47→11:26)
[2021-08-09] MEDS: SODIUM CHLORIDE 0.9% IV 1,000 ML 125 ML IV CONT (12:25)
[2021-08-09] MEDS: KETOROLAC 15 MG/ML VIAL (*BKC) IV PUSH ×2 (12:28→17:46)
[2021-08-09] MEDS: ACETAMINOPHEN 325 MG TABLET 650 MG PO ×3 (12:30→23:15)
--- NOTE | 2021-08-09 12:55 | PC.NURSE ---
This patient, Kylie Galo, was admitted to [facility]. Patient/family oriented to hospital policies and general routines including ID bracelet, bed and alarms, visiting hours, pain management, procedures, bathroom and other care routines, personal items, smoking policy, room service/diet, and visiting hours. Information on how to activate the Rapid Response Team has been discussed. Patient/Family are encouraged to report perceived risks to care and to ask questions if they do not understand what they are told or what they should do.
[2021-08-09] MEDS: SENNA/DOCUSATE SODIUM TABLET 2 TAB PO (17:37)
--- NOTE | 2021-08-09 19:00 | PC.NURSE ---
Patient recently ambulated to restroom with no difficulties with walker. Patient has eaten dinner and is resting in bed. No further instructions have been given.
[2021-08-09] MEDS: FLUTICASONE PROPIONATE 0.05% NA SPR 16 GM BTL (*BKC) 2 SPRAY NASAL (21:22)
[2021-08-09] MEDS: MORPHINE SULFATE (*CRX) 4 MG/ML INJ 3 MG IV PUSH (23:50)
[2021-08-10] VITALS (7 sets, daily range): BP systolic 102–111; BP diastolic 43–45; PULSE 89–91; RESP 16–20; TEMP 37.1–37.9; O2SAT 94–98
[2021-08-10] MEDS: KETOROLAC 15 MG/ML VIAL (*BKC) IV PUSH ×2 (00:19→06:47)
[2021-08-10] MEDS: MORPHINE SULFATE (*CRX) 4 MG/ML INJ 3 MG IV PUSH (02:57)
[2021-08-10 04:39] LABS: Basophils Percent Auto 0.2 % (0.2-1.2); Eosinophils Percent Auto 0.1 % (0-4.4); Hematocrit 25.9 % (37.0-47.0); Hemoglobin 8.5 g/dL (12.0-15.0); Immature Granulocyte Absolute 0.07 K/mm3 (0.00-0.031); Immature Granulocyte Percent A 0.5 % (0-0.5); Lymphocytes Absolute Auto 1.38 K/mm3 (0.9-3.2); Lymphocytes Percent Auto 10.3 % (18.3-44.2); Mean Corpuscular HGB Conc 32.8 g/dl (32-36); Mean Corpuscular Hemoglobin 30.4 pg (26-34); Mean Corpuscular Volume 92.5 fl (80-100); Mean Platelet Volume 9.6 fl (7.4-10.4); Monocytes Absolute Auto 1.2 K/mm3 (0.1-0.6); Monocytes Percent Auto 9.2 % (2.6-8.5); Neutrophils Absolute Auto 10.7 K/mm3 (1.3-6.7); Neutrophils Percent Auto 79.7 % (45.5-73.1); Platelet Count Result 190 k/mm3 (150-375); Red Cell Distribution Width 11.9 % (11.5-14.5); White Blood Count 13.4 K/mm3 (4.5-10.0)
[2021-08-10 04:49] LABS: Anion Gap 3 mmol/L (8-16); Blood Urea Nitrogen 22 mg/dL (7-17); Calcium 8.7 mg/dL (8.4-10.2); Carbon Dioxide 26 mmol/L (22-30); Chloride 105 mmol/L (98-107); Estimated CRCL calculation 51 ml/min; Estimated Glomerular Filt Rate 55; Glucose 124 mg/dL (65-110); Potassium 4.5 mmol/L (3.4-5.0); Sodium 134 mmol/L (137-145)
[2021-08-10] MEDS: ACETAMINOPHEN 325 MG TABLET 650 MG PO (05:15)
[2021-08-10] MEDS: ceFAZolin 2 GM/D5W 50 ML 2 GM/50 ML BAG IVPB (06:47)
--- NOTE | 2021-08-10 07:24 | PM.PNORT ---
Progress Note: A&P Additional Plan POD 1 DOING WELL. OK TO DC HOME F/U IN 3 WEEKS. Subjective Subjective Date/Time Seen: 08/10/21 07:24 POD 1 DOING WELL. PASSED PT. NO CALF PAIN Exam Extrem: Other: VSS AFEBRILE DRESSING DRY NV INTACT DRESSING DRY THIGH SOFT NEG HOMANS SIGN Objective Data Vital Signs Vital Signs: Vital Signs - 24 hr 08/09/21 10:20 08/09/21 10:35 08/09/21 10:50 Temperature 36.7 C Pulse Rate 71 63 54 L Respiratory Rate 20 14 10 L Blood Pressure 115/65 105/65 96/53 L Pulse Oximetry 100 100 100 08/09/21 11:05 08/09/21 11:20 08/09/21 11:30 Temperature Pulse Rate 62 58 L 57 L Respiratory Rate 16 11 L 12 Blood Pressure 110/61 102/61 102/62 Pulse Oximetry 99 94 100 08/09/21 11:45 08/09/21 12:00 08/09/21 12:15 Temperature 36.1 C L Pulse Rate 59 L 63 58 L Respiratory Rate 14 16 16 Blood Pressure 118/58 L 115/59 L 108/57 L Pulse Oximetry 100 97 93 08/09/21 12:45 08/09/21 13:45 08/09/21 14:46 Temperature Pulse Rate 64 79 81 Respiratory Rate 18 16 16 Blood Pressure 107/63 92/47 L 102/53 L Pulse Oximetry 97 95 98 08/09/21 15:48 08/09/21 17:41 08/09/21 18:29 Temperature 36.3 C L 36.7 C 36.7 C Pulse Rate 82 76 Respiratory Rate 18 18 Blood Pressure 126/64 123/56 L Pulse Oximetry 98 100 08/09/21 20:00 08/10/21 00:05 08/10/21 04:00 Temperature 37.7 C H 37.6 C 37.9 C H Pulse Rate 86 89 Respiratory Rate 20 20 Blood Pressure 109/59 L 102/43 L Pulse Oximetry 98 94 08/10/21 05:15 08/10/21 05:35 08/10/21 06:00 Temperature 37.9 C H 37.5 C Pulse Rate 89 Respiratory Rate 18 20 Blood Pressure 102/43 L Pulse Oximetry 94 08/10/21 06:15 Temperature 37.5 C Pulse Rate Respiratory Rate Blood Pressure Pulse Oximetry Intake/Output Intake/Output: Intake & Output 08/07/21 08/08/21 08/09/21 08/10/21 23:59 23:59 23:59 23:59 Intake Total 2616 Balance 2616 Meds/Results Medications: Active Medications Generic Name Dose Route Start Last Admin Trade Name Freq PRN Reason Stop Dose Admin Acetaminophen 650 mg 08/09/21 11:50 08/10/21 05:15 Acetaminophen 325 Mg Tablet PO 650 mg Q6H PRN Administration Mild Pain (1-3) or Fever Hydrocodone Bitart/Acetaminophen 1 tab 08/09/21 11:50 Hydrocodone/Acetaminophen (*Crx) 7.5-325 Mg Tablet PO Q3H PRN Pain Rated 4-6 Al Hydrox/Mg Hydrox/Simethicone 30 ml 08/09/21 11:50 Mag Hydrox/Al Hydrox/Simeth 30 Ml Udc PO Q6H PRN Indigestion Artificial Tears 1 drop 08/09/21 11:50 Artificial Tears Ophth Soln 15 Ml Bottle EACH EYE Q2-4H PRN Dry Eye(S) Aspirin 650 mg 08/10/21 09:00 Aspirin 325 Mg Enteric Tablet PO DAILY MICHAEL Diazepam 5 mg 08/09/21 11:50 Diazepam (*Crx) 5 Mg Tablet PO Q6H PRN Anxiety/Muscle Spasm Docusate Sodium 100 mg 08/10/21 09:00 Docusate Sodium 100 Mg Capsule PO DAILY MICHAEL Fluticasone Propionate 2 spray 08/09/21 21:00 08/09/21 21:22 Fluticasone Propionate 0.05% Na Spr 16 Gm Btl (*Bkc) NASAL 2 spray HS MICHAEL Administration Hydroxyzine HCl 50 mg 08/09/21 11:50 Hydroxyzine Hcl 25 Mg Tablet PO Q4H PRN Itching Cefazolin Sodium 2 gm in 50 mls @ 100 mls/hr 08/09/21 15:00 08/10/21 06:47 Ancef 2 Gm/D5w 50 Ml IVPB 08/10/21 07:29 100 mls/hr Q8H MICHAEL Administration Sodium Chloride 1,000 mls @ 125 mls/hr 08/09/21 11:50 08/09/21 17:47 Normal Saline Iv IV CONT 0 mls/hr .Q8H MICHAEL Infusion Ketorolac Tromethamine 15 mg 08/09/21 12:00 08/10/21 06:47 Ketorolac 15 Mg/Ml Vial (*Bkc) IV PUSH 08/10/21 12:01 15 mg Q6HR MICHAEL Administration Magnesium Hydroxide 30 ml 08/09/21 11:50 Magnesium Hydroxide Susp 30 Ml Udc PO BID PRN Constipation Morphine Sulfate 3 mg 08/09/21 11:50 08/10/21 02:57 Morphine Sulfate (*Crx) 4 Mg/Ml Inj IV PUSH 3 mg Q3H PRN Administration Pain Rated 7-10 Naloxone HCl 0.1 mg 08/09/21 11:50 Naloxone H
--- NOTE | 2021-08-10 07:26 | PM.DS ---
DS: Admitting Diagnosis Discharge Date 08/10/21 Admitting Diagnosis RIGHT HIP DJD DS: Discharge Diagnosis Discharge Diagnosis (1) Degenerative joint disease (DJD) of hip: Qualifiers: Osteoarthritis type: primary Laterality: right Qualified Code(s): M16.11 - Unilateral primary osteoarthritis, right hip Code(s): M16.9 - Osteoarthritis of hip, unspecified Status: Acute DS: Summary Hospital Course Reason for hospitalization: R JIGNA Hospital Course: PATIENT WAS ADMITTED S/P TOTAL HIP ARTHROPLASTY FOR POSTOPERATIVE MEDICAL MANAGEMENT, PAIN CONTROL AND MOBILIZATION WITH PHYSICAL AND OCCUPATIONAL THERAPY. THE PATIENT PROGRESSED WELL WITH PT/OT. LABS AND VITALS REMAINED STABLE AND PAIN WELL CONTROLLED. THE PATIENT HAS BEEN CLEARED TO BE DISCHARGED TO HOME. FOLLOW UP APPOINTMENT SCHEDULED. DISCHARGE INSTRUCTIONS DISCUSSED AT LENGTH WITH THE PATIENT. MEDICATIONS REVIEWED. Time spent discussing smoking cessation with patient: 3 to 10 minutes Status at Discharge Functional status at discharge: uses cane/walker Overall status at discharge: patient is not back to baseline Time Spent with Patient Time attestation: Total time spent providing and/or coordinating discharge services: Time spent: Less than 30 minutes DS: Data Data Completed and Pending Labs on day of discharge: Labs from last 24 hours 08/10/21 08/10/21 08/09/21 04:28 04:28 06:20 WBC 13.4 H RBC 2.80 L Hgb 8.5 L D Hct 25.9 L MCV 92.5 MCH 30.4 MCHC 32.8 RDW 11.9 Plt Count 190 MPV 9.6 Immature Gran % (Auto) 0.5 Neut % (Auto) 79.7 H Lymph % (Auto) 10.3 L [place] % (Auto) 9.2 H Eos % (Auto) 0.1 Baso % (Auto) 0.2 Lymph # (Auto) 1.38 [place] # (Auto) 1.2 H Eos # (Auto) 0.0 Baso # (Auto) 0.0 Abs Immat Gran (auto) 0.07 H Absolute Neuts (auto) 10.7 H Absolute Nucleated RBC 0.0 Nucleated RBC % 0.0 Sodium 134 L Potassium 4.5 Chloride 105 Carbon Dioxide 26 Anion Gap 3 L BUN 22 H Creatinine 1.00 Estim Creat Clear Calc 51 Estimated GFR 55 L Glucose 124 H Calcium 8.7 Antibody Screen Negative Discharge Plan Discharge Attending physician on discharge: Mitul Barry Discharging Clinician: Mitul Barry Anticipated Discharge Date/Time: 08/10/21 15:00 Patient Disposition: Home Health Service Activity: may shower, no driving and follow weight bearing status Diet: as tolerated Wound Care Instructions: follow printed instructions Discharge Instructions: Remove the Scopolamine patch that was placed behind your ear in 72 hours or less. Wash your hands after touching. Post Op Total Hip Replacement Instructions Dr. Mitul Barry [phone] ? Your dressing will be changed prior to your discharge. You will be sent home with one additional dressing to be changed on post op day 7 by the home health RN. You may remove the dressing on post op day 14. Your incision was closed with dermabond, allow the dermabond to fall off naturally once your dressing is removed. Do not pull at the dermabond or disrupt incision healing. ? You may shower with your dressing but do not submerge in a bath tub. ? Do not drive or operate machinery until you are released by Dr. Barry. ? Do not walk without a walker for any reason until you are released by Dr. Barry. ? Continue to apply ice to the hip intermittently for additional pain relief. Protect your skin with a towel or pillow case. ? Continue to follow strict total hip replacement precautions. ? Your first post op appointment was sent to you via mail preoperatively. If you have any questions or are unable to make your appointment, please contact our office for scheduling questions. ? Your medications have been sent to your pharmacy. You have been sent home with pain medication. We have also sent you with a stool softener as narcotics can cause constipation. Please keep this in mind during your p
--- NOTE | 2021-08-10 08:16 | WPDANESPN ---
Anes - Prog Note Post-Op Date/Time: 08/10/21 08:16 Cardiovascular status: normal Respiratory status: normal Airway patency: baseline Mental status: baseline Post-Op hydration status: normal Vital Signs: Last Vital Signs Temp 37.5 C 08/10/21 06:15 Pulse 89 08/10/21 06:00 Resp 20 08/10/21 06:00 BP 102/43 L 08/10/21 06:00 Pulse Ox 94 08/10/21 06:00 Pain Score (VAS): 07/11 I/O: Intake & Output 08/09/21 08/10/21 08/10/21 23:59 07:59 15:59 Intake Total 966 Balance 966 Laboratory Tests 08/10/21 04:28 08/10/21 04:28 08/10/21 08/10/21 04:28 04:28 WBC 13.4 H RBC 2.80 L Hgb 8.5 L D Hct 25.9 L MCV 92.5 MCH 30.4 MCHC 32.8 RDW 11.9 Plt Count 190 MPV 9.6 Immature Gran % (Auto) 0.5 Neut % (Auto) 79.7 H Lymph % (Auto) 10.3 L [place] % (Auto) 9.2 H Eos % (Auto) 0.1 Baso % (Auto) 0.2 Lymph # (Auto) 1.38 [place] # (Auto) 1.2 H Eos # (Auto) 0.0 Baso # (Auto) 0.0 Abs Immat Gran (auto) 0.07 H Absolute Neuts (auto) 10.7 H Absolute Nucleated RBC 0.0 Nucleated RBC % 0.0 Sodium 134 L Potassium 4.5 Chloride 105 Carbon Dioxide 26 Anion Gap 3 L BUN 22 H Creatinine 1.00 Estim Creat Clear Calc 51 Estimated GFR 55 L Glucose 124 H Calcium 8.7 Post-procedural complaints: none Patient Feedback: Patient satisfied with anesthetic care.
[2021-08-10] MEDS: ASPIRIN 325 MG ENTERIC TABLET 650 MG PO (08:23)
[2021-08-10] MEDS: CHOLECALCIFEROL 1,000 UNITS TABLET 5000 UNITS PO (08:28)
[2021-08-10] MEDS: SENNA/DOCUSATE SODIUM TABLET 2 TAB PO (08:29)
[2021-08-10] MEDS: polyethylene glycoL 3350 17 GM POWD.PACK PO (09:46)
[2021-08-10] MEDS: HYDROcodone/acetaminophen (*CRX) 7.5-325 MG TABLET 1 TAB PO (11:00)
--- NOTE | 2021-08-10 11:06 | PC.NURSE ---
VERIFIED WITH DR. PALOMO THAT HOME MEDS ARE CORRECT ON DISCHARGE ORDER AND CAN BE FINALIZED.
== END 2021-08-10 11:42 | disposition home health service (06) | DRG 470 ==
LOC: ANHSUROVER 12:03
PROVIDERS: Admitting Provider Orthopaedic Surgery; PCP Family Medicine; Visit Provider Orthopaedic Surgery
PROC: 0SR902Z Replacement of Right Hip Joint with Metal on Polyethylene Synthetic Substitute, Open Approach (ICD-10-PCS; CPT 27130; principal; 2021-08-09 07:30)
DX: M16.11 Unilateral primary osteoarthritis, right hip (principal); E78.2 Mixed hyperlipidemia; Z91.81 History of falling; Z79.899 Other long term (current) drug therapy; Z79.82 Long term (current) use of aspirin; Z77.22 Contact with and (suspected) exposure to environmental tobacco smoke (acute) (chronic)
CPT/HCPCS: 36415; 73501; 80048; 84439; 84443; 84481; 85025; 86850; 86900; 86901; 97110; 97116; 97161; 97165; 97535; A9270; C1713; C1776; J0171; J0690; J1100; J1170; J1200; J1885; J2270; J2405; J2710; J2795; J3010; J7030; J7120

== ENCOUNTER 2022-02-22 07:15 | Outpatient (CLI) | payer MEDICARE, SELFPAY ==
[2022-02-22 08:17] LABS: Thyroid Stimulating Hormone 0.257 uIU/mL (0.465-4.680)
[2022-02-22 08:41] LABS: Free T4 Free Thyroxine 1.15 ng/mL (0.78-2.19)
[2022-02-26 05:52] LABS: Triiodothyronine T3 Free 3.6 pg/mL (2.3-4.2)
== END 2022-02-22 07:16 | disposition home or self-care (01) ==
PROVIDERS: PCP Family Medicine; Visit Provider Internal Medicine Endocrinology, Diabetes & Metabolism
DX: E04.1 Nontoxic single thyroid nodule (principal); E05.90 Thyrotoxicosis, unspecified without thyrotoxic crisis or storm
CPT/HCPCS: 36415; 84439; 84443; 84481

== ENCOUNTER 2022-03-17 07:33 | Outpatient (CLI) | payer MEDICARE, SELFPAY ==
--- NOTE | ~2022-03-17 | US_ITS ---
EXAMINATION: US thyroid DATE: 03/17/2022 08:51 INDICATION: Thyroid nodules. TECHNIQUE: Multiple ultrasound images of the thyroid were obtained. COMPARISON: Ultrasound 12/19/2020, 08/23/2017 FINDINGS: The right thyroid lobe measures 9.0 x 2.2 x 3.5 cm. The left thyroid lobe measures 6.4 x 1.7 x 2.1 c m. There are multiple nodules in the thyroid. In the right thyroid lobe, there is a 2.7 cm predomina ntly solid, hypoechoic, wider than tall nodule with smooth margin without echogenic foci (TI-RADS TR4 ), stable from 08/23/17 and with benign biopsy result on 09/13/17. In the right thyroid lobe, there is a 2.8 cm mixed cystic and solid, hypoechoic, wider than tall nodule with smooth margin without echoge tanesha foci (TR3), stable from 08/23/17. In the right thyroid lobe, there is a 1.4 cm mixed cystic and so lid, hypoechoic, wider than tall nodule with smooth margin without echogenic foci (TR3), increased fr om 1.1 cm on 08/23/17. In the left thyroid lobe, there is a 1.7 cm solid, hypoechoic, wider than tall nodule with limited margin without echogenic foci (TR4) that measured 1.4 cm on 08/23/17. IMPRESSION: 1. Multinodular goiter. Consider ultrasound-guided fine-needle aspiration of the 1.7 cm nodule in inf erior left thyroid lobe. Reviewed, dictated and finalized at location A. IMPRESSION: 1. Multinodular goiter. Consider ultrasound-guided fine-needle aspiration of th e 1.7 cm nodule in inferior left thyroid lobe.
== END 2022-03-17 07:34 | disposition home or self-care (01) ==
LOC: ANHIMG 07:35
PROVIDERS: PCP Family Medicine; Visit Provider Internal Medicine Endocrinology, Diabetes & Metabolism
DX: E04.2 Nontoxic multinodular goiter (principal); E05.90 Thyrotoxicosis, unspecified without thyrotoxic crisis or storm; M85.80 Other specified disorders of bone density and structure, unspecified site; Z78.0 Asymptomatic menopausal state
CPT/HCPCS: 76536

== ENCOUNTER 2022-05-04 09:50 | Outpatient (CLI) | payer MEDICARE, SELFPAY ==
--- NOTE | ~2022-05-04 | US_ITS ---
EXAMINATION: US FNA w image guidance DATE: 05/04/2022 11:07 INDICATION: Left thyroid nodule TECHNIQUE: A time-out was performed to verify the patient's name, date of , and procedure to be performed . The procedure and its benefits and risks were discussed with the patient. Risks specifically discus sed included bleeding and infection. The patient understood the risks and agreed to proceed. The neck was prepped and draped in the usual sterile manner. 4 mL 1% lidocaine was used for local anesthesia . 6 passes were made with a 25G needle into the lesion. Appropriate needle location was documented with continuous sonographic guidance. A sterile bandage was applied. There were no immediate compli cations. FINDINGS: Grayscale ultrasound images demonstrate biopsy needles advanced into a 1.6 x 1.1 x 1.4 cm solid hypoe choic mass at the lower pole of the left kidney. IMPRESSION: 1. Successful ultrasound-guided fine needle aspiration of a 1.6 cm TI RADS 4 mass at the inferior le ft thyroid. Reviewed, dictated and finalized at location A. IMPRESSION: 1. Successful ultrasound-guided fine needle aspiration of a 1.6 cm TI RADS 4 m ass at the inferior left thyroid.
== END 2022-05-04 09:51 | disposition home or self-care (01) ==
PROVIDERS: PCP Family Medicine; Visit Provider Internal Medicine Endocrinology, Diabetes & Metabolism
DX: E04.1 Nontoxic single thyroid nodule (principal)
CPT/HCPCS: 10005; 88173; 88305

== ENCOUNTER 2022-07-20 02:06 | Day surgery (SDC) | payer MEDICARE, SELFPAY ==
[2022-07-20 09:26] VITALS: BP 140/76; PULSE 87; RESP 18; TEMP 36.1; O2SAT 99; BMI 30.2
[2022-07-20] MEDS: LACTATED RINGERS 1,000 ML 150 ML IV CONT (09:39)
[2022-07-20] MEDS: AMPICILLIN 2 GM/NS 100 ML 2 GM/100 ML BAG IVPB (09:40)
--- NOTE | 2022-07-20 09:40 | PM.HPGS ---
History of Present Illness History of Present Illness Consent: Risks, benefits, and alternatives have been discussed and questions answered. Patient agrees to proceed with procedure. Chief complaint: neoplasm screening Narrative: Kylie Galo is a 66 year old female Presents today for screening colonoscopy. Patient's current weight appetite and bowel movements appear normal. Patient denies abdominal pain. She has had no bleeding. She has no known family history of colon or rectal disease. She has never previously had a colonoscopy. Review of Systems Review of Systems: Review of systems noncontributory. [facility] Past Medical History Medical History (Updated 07/20/22 @ 09:41 by Jose Manuel Israel MD) Arthritis Bunionette of left foot Clawtoe, acquired Degenerative joint disease (DJD) of hip Encounter for postoperative care Frequent falls Goiter Hammertoe of second toe of left foot History of anesthesia problem Low back pain Mixed hyperlipidemia Seasonal allergies Thyroid Nodule Vitamin D deficiency Surgical History Surgical History (Updated 06/07/22 @ 08:30 by Ingris Escobedo [facility]) H/O arthroscopic knee surgery Right knee 2006 Dr. Allen Left knee 2007 Dr. Allen H/O breast biopsy 2003 H/O dilation and curettage 1989 Dr. Garcia H/O foot surgery H/O tubal ligation 1983 Dr. Ruiz History of tonsillectomy 1963 S/P hip replacement Family History Family History Father CHF (congestive heart failure) Skin cancer Mother CHF (congestive heart failure) Atrial fibrillation Hypertension Cerebrovascular accident Sibling Childhood asthma Daughter Hypertension Diabetes mellitus Cerebrovascular accident Other Arthritis Asthma Heart disease Thyroid disease Social History Social History (Updated 06/07/22 @ 08:32 by Ingris Escobedo [facility]) Smoking status: Never smoker Second hand tobacco smoke exposure: Yes (40 YEARS) Alcohol intake: never Substance use: never Substance use type: does not use Lack of Transportation: No Lack of Food: Never True Current Housing: I Have Housing Concerned About Future Housing: No Difficulty Paying Gas/Electric Bills: No Difficulty Paying for Meds: No Currently Unemployed: No Education: High School Diploma/GED Difficulty w/ Childcare or Family Care: No Living arrangements: with family Additional living arrangements comments: SON AND AUNT Gender identity (if verbalized by the patient): Female Spiritual care concerns: No Agree to blood products: Yes Meds Home Medications and Allergies Home Medications Medication Instructions Recorded Confirmed Type carboxymethyl 0.5 %-glycerin 1 1 drp EACH EYE Q2-4H PRN Dry Eye(S) 11/15/20 07/20/22 History %-polysorb 80 0.5 %-PF eye dropperette (Refresh Optive Advanced (PF)) docusate sodium 100 mg capsule 100 mg PO DAILY 11/15/20 07/20/22 History (Colace) fluticasone propionate 50 2 spray intranasal HS 11/15/20 07/20/22 History mcg/actuation nasal spray,suspension cholecalciferol (vitamin D3) 125 125 mcg PO DAILY 04/04/21 07/20/22 History mcg (5,000 unit) capsule aspirin 81 mg tablet,delayed 81 mg PO DAILY 03/01/22 07/20/22 History release (Adult Low Dose Aspirin) Allergies Allergy/AdvReac Type Severity Reaction Status Date / Time thiopental [From Pentothal] AdvReac Severe SEVERE/PROLONGED Verified 07/20/22 09:23 NAUSEA AND VOMITING lisinopril AdvReac Intermediate FELT LIKE Verified 07/20/22 09:23 PASSING OUT sodium thiopental Allergy Unknown Unknown Uncoded 07/20/22 09:23 Vital Signs Vital Signs - 24 hr 07/20/22 09:26 Temperature 97.0 F L Pulse Rate 87 Respiratory Rate 18 Blood Pressure 140/76 Pulse Oximetry 99 Oxygen Delivery Room Air Exam Narrative: Physical exam reveals patient to be alert. Vital signs stable. HEENT exam is unremarkab
--- NOTE | 2022-07-20 09:52 | WPDANESEPPF ---
Anes - Initial Pre Proc Eval Procedure: Operation Date: 07/20/22 10:30 Proposed Procedures p Screening Colonoscopy - Jose Manuel Israel MD Date/Time: 07/20/22 09:52 Surgeon: Jose Manuel Israel MD Pre Op Diagnosis: neoplasm screening Patient Data Age: 66 Gender: F Height: 1.63 m Weight: 79.8 kg Last Vital Signs Temp 97.0 F L 07/20/22 09:26 Pulse 87 07/20/22 09:26 Resp 18 07/20/22 09:26 BP 140/76 07/20/22 09:26 Pulse Ox 99 07/20/22 09:26 O2 Del Method Room Air 07/20/22 09:26 Allergies Allergy/AdvReac Type Severity Reaction Status Date / Time thiopental [From Pentothal] AdvReac Severe SEVERE/PROLONGED Verified 07/20/22 09:23 NAUSEA AND VOMITING lisinopril AdvReac Intermediate FELT LIKE Verified 07/20/22 09:23 PASSING OUT sodium thiopental Allergy Unknown Unknown Uncoded 07/20/22 09:23 Home Medications Medication Instructions Recorded Confirmed Type carboxymethyl 0.5 %-glycerin 1 1 drp EACH EYE Q2-4H PRN Dry Eye(S) 11/15/20 07/20/22 History %-polysorb 80 0.5 %-PF eye dropperette (Refresh Optive Advanced (PF)) docusate sodium 100 mg capsule 100 mg PO DAILY 11/15/20 07/20/22 History (Colace) fluticasone propionate 50 2 spray intranasal HS 11/15/20 07/20/22 History mcg/actuation nasal spray,suspension cholecalciferol (vitamin D3) 125 125 mcg PO DAILY 04/04/21 07/20/22 History mcg (5,000 unit) capsule aspirin 81 mg tablet,delayed 81 mg PO DAILY 03/01/22 07/20/22 History release (Adult Low Dose Aspirin) Patient hx anesthesia problems: none Family hx anesthesia problems: none Results Review: All pre-operative results and documents have been reviewed as part of the pre-operative evaluation. [facility] Past Medical History Medical History (Updated 07/20/22 @ 09:41 by Jose Manuel Israel MD) Arthritis Bunionette of left foot Clawtoe, acquired Degenerative joint disease (DJD) of hip Encounter for postoperative care Frequent falls Goiter Hammertoe of second toe of left foot History of anesthesia problem Low back pain Mixed hyperlipidemia Seasonal allergies Thyroid Nodule Vitamin D deficiency Surgical History Surgical History (Updated 06/07/22 @ 08:30 by Ingris Escobedo [facility]) H/O arthroscopic knee surgery Right knee 2006 Dr. Allen Left knee 2007 Dr. Allen H/O breast biopsy 2003 H/O dilation and curettage 1989 Dr. Garcia H/O foot surgery H/O tubal ligation 1983 Dr. Ruiz History of tonsillectomy 1963 S/P hip replacement Family History Family History (Reviewed 06/07/22 @ 08:20 by Ingris Escobedo [facility]) Father CHF (congestive heart failure) Skin cancer Mother CHF (congestive heart failure) Atrial fibrillation Hypertension Cerebrovascular accident Sibling Childhood asthma Daughter Hypertension Diabetes mellitus Cerebrovascular accident Other Arthritis Asthma Heart disease Thyroid disease Social History Social History (Updated 06/07/22 @ 08:32 by Ingris Escobedo [facility]) Smoking status: Never smoker Second hand tobacco smoke exposure: Yes (40 YEARS) Alcohol intake: never Substance use: never Substance use type: does not use Lack of Transportation: No Lack of Food: Never True Current Housing: I Have Housing Concerned About Future Housing: No Difficulty Paying Gas/Electric Bills: No Difficulty Paying for Meds: No Currently Unemployed: No Education: High School Diploma/GED Difficulty w/ Childcare or Family Care: No Living arrangements: with family Additional living arrangements comments: SON AND AUNT Gender identity (if verbalized by the patient): Female Spiritual care concerns: No Agree to blood products: Yes Anes - Eval Final PreProcedure Day of Procedure 07/20/22 09:52 Patient weight: normal Heart: regular rate and rhythm Lungs: clear to auscultation Airway: Mallampati scale class II Neurological: alert and oriented Last oral intake: >/=
[2022-07-20 10:47] VITALS: BP 108/58; PULSE 69; RESP 15; O2SAT 98
[2022-07-20 10:57] VITALS: BP 113/61; PULSE 84; RESP 20; O2SAT 100
[2022-07-20 11:07] VITALS: BP 109/54; PULSE 78; RESP 20; O2SAT 100
== END 2022-07-20 11:20 | disposition home or self-care (01) ==
PROVIDERS: PCP Family Medicine; Visit Provider Internal Medicine Gastroenterology
PROC: 0DJD8ZZ Inspection of Lower Intestinal Tract, Via Natural or Artificial Opening Endoscopic (ICD-10-PCS; CPT 45378; principal; 2022-07-20 10:30)
DX: Z12.11 Encounter for screening for malignant neoplasm of colon (principal); K62.1 Rectal polyp; K64.8 Other hemorrhoids
CPT/HCPCS: 45380; 88305; J0290; J2704; J7120

== ENCOUNTER 2022-12-01 07:53 | Outpatient (CLI) | payer MEDICARE, SELFPAY ==
[2022-12-01 09:35] LABS: Basophils Absolute Auto 0.1 K/mm3 (0.0-0.1); Eosinophils Absolute Auto 0.7 K/mm3 (0-0.3); Eosinophils Percent Auto 11.8 % (0-4.4); Hematocrit 41.5 % (37.0-47.0); Hemoglobin 13.7 g/dL (12.0-15.0); Immature Granulocyte Absolute 0.01 K/mm3 (0.00-0.031); Immature Granulocyte Percent A 0.2 % (0-0.5); Lymphocytes Absolute Auto 1.39 K/mm3 (0.9-3.2); Lymphocytes Percent Auto 23.1 % (18.3-44.2); Mean Corpuscular Hemoglobin 29.3 pg (26-34); Mean Corpuscular Volume 88.7 fl (80-100); Mean Platelet Volume 10.4 fl (7.4-10.4); Monocytes Absolute Auto 0.5 K/mm3 (0.1-0.6); Monocytes Percent Auto 7.6 % (2.6-8.5); Neutrophils Absolute Auto 3.4 K/mm3 (1.3-6.7); Neutrophils Percent Auto 56.3 % (45.5-73.1); Platelet Count Result 264 k/mm3 (150-375); Red Blood Count 4.68 M/mm3 (4.2-5.4); Red Cell Distribution Width 12.2 % (11.5-14.5)
[2022-12-01 09:49] LABS: Alanine Aminotransferase 25 U/L (6-35); Albumin Level 4.3 g/dL (3.5-5.1); Alkaline Phosphatase 85 U/L (38-126); Anion Gap 6 mmol/L (8-16); Aspartate Amino Transferase 26 U/L (14-36); Bilirubin,Total 0.6 mg/dL (0.2-1.3); Blood Urea Nitrogen 19 mg/dL (7-17); Calcium 8.9 mg/dL (8.4-10.2); Carbon Dioxide 28 mmol/L (22-30); Chloride 104 mmol/L (98-107); Cholesterol 214 mg/dL (0-200); Estimated Glomerular Filt Rate > 60; Glucose 91 mg/dL (65-110); HDL Direct 62 mg/dL; Potassium 4.2 mmol/L (3.4-5.0); Sodium 138 mmol/L (137-145); Triglycerides 109 mg/dL (<150)
[2022-12-01 10:00] LABS: LDL Cholesterol Direct 126 mg/dL
[2022-12-01 10:08] LABS: Vitamin D 25 Hydroxy 75.8 ng/mL
== END 2022-12-01 07:54 | disposition home or self-care (01) ==
LOC: ANHLAB 07:56
PROVIDERS: PCP Family Medicine; Visit Provider Family Medicine
DX: D50.9 Iron deficiency anemia, unspecified (principal); E04.1 Nontoxic single thyroid nodule; E55.9 Vitamin D deficiency, unspecified; E78.2 Mixed hyperlipidemia; R53.83 Other fatigue
CPT/HCPCS: 36415; 80053; 80061; 82306; 85025

== ENCOUNTER → 2022-12-19 16:46 | Outpatient (CLI) | payer MEDICARE, SELFPAY ==
--- NOTE | ~2022-12-19 | XR_ITS ---
EXAMINATION: XR chest 2V Exam Date/Time: 12/19/2022 17:06 CDT HISTORY: R05.9 - Cough, unspecified Comparison: 08/13/2017. RESULT: Lines, tubes, and devices: None. Lungs and pleura: Diffuse mild reticular and reticulonodular opacities. Cardiomediastinal silhouette: Stable. Other: No acute osseous or upper abdominal finding. IMPRESSION: Pulmonary opacities may represent mild bronchiolitis, as can be seen with atypical infection, asthma, aspiration, and small airways disease. Reviewed, dictated and finalized at location K. IMPRESSION: Pulmonary opacities may represent mild bronchiolitis, as can be seen with atypi angel infection, asthma, aspiration, and small airways disease.
== END ==
PROVIDERS: PCP Family Medicine; Visit Provider Physician Assistant Medical
DX: R05.9 Cough, unspecified (principal)
CPT/HCPCS: 71046

== ENCOUNTER → 2022-12-26 12:31 | Outpatient (CLI) | payer MEDICARE, SELFPAY ==
--- NOTE | ~2022-12-26 | CT_ITS ---
EXAMINATION: CT chest abdomen wo con DATE: 12/26/2022 13:34 INDICATION: Pneumonia, unspecified organism, gastroesophageal reflux disease TECHNIQUE: Computed tomography (CT) of the chest and abdomen was performed without intravenous contra st. The dose-length product (DLP) was 700.12 mGy-cm. Automated exposure control and iterative reconst ruction technique were employed. COMPARISON: None FINDINGS: CHEST: There is multinodular goiter of the thyroid having previously undergone fine-needle aspiration . The lungs are free of acute opacities. No pleural effusion or pneumothorax. There is a small fissur al lymph node in association with the minor fissure on the right. No pleural effusion or pneumothorax . No pathologically enlarged thoracic lymph nodes are identified. The heart size is normal. There is mild thoracic spondylosis. ABDOMEN: There are multiple small hypoattenuating lesions of the liver, measuring up to 5 mm, which l ikely represent cysts. The spleen, pancreas, gallbladder, and adrenal glands are normal. Cysts of the left kidney measure up to 11 mm. The right kidney is unremarkable. There are no pathologically enlar ged abdominal lymph nodes. Mild lumbar spondylosis is noted. The appendix is normal. No free intraper itoneal gas or evidence of bowel obstruction. IMPRESSION: 1. No acute findings of the chest or abdomen. Reviewed, dictated and finalized at location L.
== END ==
PROVIDERS: PCP Family Medicine; Visit Provider Physician Assistant Medical
DX: J18.9 Pneumonia, unspecified organism (principal); R05.3 Chronic cough
CPT/HCPCS: 71250; 74150

== ENCOUNTER → 2022-12-26 12:34 | Outpatient (CLI) | payer MEDICARE, SELFPAY ==
--- NOTE | ~2022-12-26 | XR_ITS ---
AP and oblique views of the bilateral SI joints CLINICAL HISTORY: Sacroiliitis FINDINGS: Probable minimal degenerative change at the SI joints bilaterally. No erosive or sclerotic change evident. No evidence for inflammatory arthropathy. Right hip arthroplasty present. Left hip juan int space is preserved. Soft tissues are unremarkable. IMPRESSION: Minimal osteoarthritic changes of the bilateral SI joints. Right hip arthroplasty. Reviewed, dictated and finalized at location .
== END ==
PROVIDERS: PCP Family Medicine; Visit Provider Family Medicine
DX: M46.1 Sacroiliitis, not elsewhere classified (principal)
CPT/HCPCS: 72202

== ENCOUNTER 2023-01-03 07:30 | Outpatient (CLI) | payer MEDICARE, SELFPAY ==
--- NOTE | ~2023-01-03 | US_ITS ---
EXAMINATION: US abdomen complete DATE: 01/03/2023 07:57 INDICATION: Other specified diseases of liver. TECHNIQUE: Multiple grayscale and Doppler ultrasound images of the abdomen were obtained. COMPARISON: CT abdomen 12/26/2022 FINDINGS: The visualized portions of the head and body of the pancreas are normal. The liver is maximino l without focal lesion. No liver surface nodularity. There is normal flow in main portal vein. Abdomi nal aorta is normal in caliber. Inferior vena cava is normal. The gallbladder is normal in size and c ontains sludge. No gallstones or gallbladder wall thickening. There is no sonographic Frederick sign. Th e common duct is normal and measures 5 mm. The spleen is normal in size. The kidneys are normal in si ze. IMPRESSION: 1. Normal liver. Reviewed, dictated and finalized at location A. IMPRESSION: 1. Normal liver.
== END 2023-01-03 07:31 | disposition home or self-care (01) ==
LOC: ANHIMG 07:32
PROVIDERS: PCP Family Medicine; Visit Provider Physician Assistant Medical
DX: K76.89 Other specified diseases of liver (principal); N28.1 Cyst of kidney, acquired
CPT/HCPCS: 76700

== ENCOUNTER 2023-03-01 06:43 | Outpatient (CLI) | payer MEDICARE, SELFPAY ==
--- NOTE | ~2023-03-01 | US_ITS ---
EXAMINATION: US thyroid DATE: 03/01/2023 08:41 INDICATION: Nontoxic single thyroid nodule TECHNIQUE: Multiple ultrasound images of the thyroid were obtained. COMPARISON: None. FINDINGS: The right thyroid lobe measures 5.4 x 3.1 x 3.5 cm. The left thyroid lobe measures 5.6 x 1.5 x 2.2 c m. There several similar appearing nodules scattered throughout both the left and right thyroid lobe s. These are all prominently solid or predominantly solid, wider than tall with heterogeneous decreas ed echogenicity, smooth margins, increased vascular flow on color Doppler and without internal echoge tanesha foci (TI-RADS 4, moderately suspicious , FNA if >=1.5 cm, annual followup is >=1 cm). In order of decreasing sizes the largest in each thyroid lobe measure 3.9 cm, 2.8 cm and 1.6 cm in the right thy roid lobe and 2.2 cm, 0.8 cm and 0.8 cm and the left thyroid lobe. IMPRESSION: 1. Multinodular goiter with several nodules meeting criteria for ultrasound-guided biopsy. Would kevon mmend ultrasound-guided biopsy of the largest 3.9 cm right thyroid nodule. Could consider additional biopsy of either the second largest 2.8 cm nodule in the right thyroid lobe or the largest 2.2 cm nod ule in the left thyroid lobe. Reviewed, dictated and finalized at location A. IMPRESSION: 1. Multinodular goiter with several nodules meeting criteria for ultrasound-rob ded biopsy. Would recommend ultrasound-guided biopsy of the largest 3.9 cm righ t thyroid nodule. Could consider additional biopsy of either the second largest 2.8 cm nodule in the right thyroid lobe or the largest 2.2 cm nodule in the le ft thyroid lobe.
--- NOTE | ~2023-03-01 | DEXA_ITS ---
Bone Density Report Name: MARGARITA SR Age: 67 Sex: Female Ethnicity: White Date of : 1955 Indication: osteopenia; height loss; postmenopausal Referring Provider: CEE MEJIA Study: Bone densitometry was performed. Exam Date: March 01, 2023 Accession number: [id number] Bone Density: Region BMD T-score Z-score Classification AP Spine(L1-L4) 0.932 -1.0 0.9 Normal Femoral Neck (Left) 0.669 -1.6 0.0 Osteopenia Total Hip (Left) 0.768 -1.4 -0.1 Osteopenia World Health Organization criteria for BMD impression classify patients as: Normal (T-score at or above -1.0), Osteopenia (T-score between -1.0 and -2.5), or Osteoporosis (T-score at or below -2.5). 10-year Fracture Risk(1): Major Osteoporotic Fracture 9.4% Hip Fracture 1.2% Reported Risk Factors: [place] (), Neck BMD=0.669, BMI=31.2 (1) FRAX(R) Version 3.08. Fracture probability calculated for an untreated patient. Fracture probability may be lower if the patient has received treatment. Previous Exams: Region Exam Age BMD T-score BMD Change BMD Change Date g/cm2 vs Baseline vs Previous AP Spine (L1-L4) 03/01/2023 67 0.932 -1.0 -0.004 (-0.4%) -0.004 (-0.4%) 12/27/2020 65 0.936 -1.0 Total Hip(Left) 03/01/2023 67 0.768 -1.4 0.000 (0.0%) 0.000 (0.0%) 12/27/2020 65 0.768 -1.4 *Denotes significance at 95% confidence level, LSC for AP Spine = 0.022 g/cm2, LSC for Total Hip = 0.027 g/cm2 Clinical Information Provided by Patient: Has used the following medications: Vitamin D Patient maximum height was 66 Menopause Age: 56 No regular weight bearing exercise Onset of menses at age 12 Number of children 3 Impression: The patient has low bone mass, based on the Left Femoral Neck T-score. The patient has an estimated ten-year risk of hip fracture of 1.2% and an estimated ten-year risk of major fracture of 9.4%, based on the WHO FRAX algorithm. No significant bone loss was observed. Discussion: BONE DENSITY IS LOW AT ONE OR MORE SKELETAL SITES. This patient's lowest T-score is low at one or more skeletal sites. It meets the World Health Organization's (WHO) criteria for ?low bone mass? (T-score between -1.0 and -2.5). The patient's 10-year risk of fracture as calculated by FRAX is less than the threshold where pharmacological therapy is recommended by the National Osteoporosis Foundation (NOF). However, all treatment decisions require clinical judgment and consideration of individual patient factors, including patient preferences, co
[2023-03-01 08:34] LABS: Thyroid Stimulating Hormone 0.468 uIU/mL (0.465-4.680)
[2023-03-01 09:21] LABS: Free T4 Free Thyroxine 1.76 ng/mL (0.78-2.19)
[2023-03-04 06:20] LABS: Triiodothyronine T3 Free 3.5 pg/mL (2.3-4.2)
== END 2023-03-01 06:44 | disposition home or self-care (01) ==
PROVIDERS: PCP Family Medicine; Visit Provider Internal Medicine Endocrinology, Diabetes & Metabolism
DX: Z78.0 Asymptomatic menopausal state (principal); M85.80 Other specified disorders of bone density and structure, unspecified site; E05.90 Thyrotoxicosis, unspecified without thyrotoxic crisis or storm; E04.2 Nontoxic multinodular goiter; M85.852 Other specified disorders of bone density and structure, left thigh
CPT/HCPCS: 36415; 76536; 77080; 84439; 84443; 84481

== ENCOUNTER 2023-03-20 07:16 | Outpatient (CLI) | payer MEDICARE, SELFPAY ==
--- NOTE | ~2023-03-20 | MM_ITS ---
EXAMINATION: MM screening juanpablo BI w gold HISTORY: Screening TECHNIQUE: Craniocaudal and mediolateral oblique 3-D tomosynthesis images were obtained and synthetic 2-D images were generated. CAD analysis was submitted and interpreted. COMPARISON: Comparison to multiple prior studies sequentially, with oldest reviewed study dated 09/2013. BREAST PARENCHYMAL COMPOSITION: There are scattered areas of fibroglandular density. FINDINGS: There are developing nodular asymmetries centered in the upper outer quadrant of both breas ts anterior-middle depth. There are no suspicious calcifications or focal architectural distortion. IMPRESSION: 1. Developing bilateral nodular asymmetries. 2. Additional mammographic views and possible breast ultrasound are recommended. BI-RADS Category 0: Incomplete: Needs additional imaging evaluation. Reviewed, dictated and finalized at location A. IMPRESSION: 1. Developing bilateral nodular asymmetries. 2. Additional mammographic views and possible breast ultrasound are recommended . BI-RADS Category 0: Incomplete: Needs additional imaging evaluation.
== END 2023-03-20 07:17 | disposition home or self-care (01) ==
LOC: ANHIMG 07:19
PROVIDERS: PCP Family Medicine; Visit Provider Family Medicine
DX: Z12.31 Encounter for screening mammogram for malignant neoplasm of breast (principal); R92.8 Other abnormal and inconclusive findings on diagnostic imaging of breast
CPT/HCPCS: 77063; 77067

== ENCOUNTER 2023-03-22 12:06 | Outpatient (CLI) | payer MEDICARE, SELFPAY ==
--- NOTE | ~2023-03-22 | US_ITS ---
EXAMINATION: US FNA w image guidance, US FNA additional, US FNA additional DATE: 03/22/2023 13:59 INDICATION: Multinodular goiter TECHNIQUE: A time-out was performed to verify the patient's name, date of , and procedure to be performed . The procedure and its benefits and risks were discussed with the patient. Risks specifically discus sed included bleeding and infection. The patient understood the risks and agreed to proceed. The ante rior neck was prepped and draped in the usual sterile manner. 8 mL 1% lidocaine was used for local a nesthesia. Attention was first turned to the left thyroid nodule. 5 passes were made with a 25G needl e into the lesion. Attention was then turned to the 2 nodules in the right thyroid lobe with 5 passes made into each lesion with a 25G needle. Appropriate needle location was documented with continuous sonographic guidance. Sterile bandages were applied. There were no immediate complications. FINDINGS: Grayscale ultrasound images demonstrate multiple thyroid nodules. Subsequent images demonstrate biops y needles advanced sequentially into a 2.2 cm nodule at the inferior left thyroid, 8 3.9 cm nodule at the inferior right thyroid. A 2.8 cm nodule at the superior right thyroid. IMPRESSION: 1. Successful ultrasound-guided fine needle aspiration of a 2.2 cm TI RADS 4 nodule at the inferior left thyroid. 2. Successful ultrasound-guided fine needle aspiration of a 3.9 cm TI RADS 4 nodule at the inferior r ight thyroid. 3. Successful ultrasound-guided fine needle aspiration of a 2.8 cm TI RADS 4 nodule at the superior r ight thyroid. Reviewed, dictated and finalized at location A. IMPRESSION: 1. Successful ultrasound-guided fine needle aspiration of a 2.2 cm TI RADS 4 n odule at the inferior left thyroid. 2. Successful ultrasound-guided fine needle aspiration of a 3.9 cm TI RADS 4 no dule at the inferior right thyroid. 3. Successful ultrasound-guided fine needle aspiration of a 2.8 cm TI RADS 4 no dule at the superior right thyroid. IMPRESSION: 1. Successful ultrasound-guided fine needle aspiration of a 2.2 cm TI RADS 4 n odule at the inferior left thyroid. 2. Successful ultrasound-guided fine needle aspiration of a 3.9 cm TI RADS 4 no dule at the inferior right thyroid. 3. Successful ultrasound-guided fine needle aspiration of a 2.8 cm TI RADS 4 no dule at the superior right thyroid.
== END 2023-03-22 12:07 | disposition home or self-care (01) ==
LOC: ANHIMG 12:08
PROVIDERS: PCP Family Medicine; Visit Provider Internal Medicine Endocrinology, Diabetes & Metabolism
DX: E04.1 Nontoxic single thyroid nodule (principal); E05.90 Thyrotoxicosis, unspecified without thyrotoxic crisis or storm
CPT/HCPCS: 10005; 10006; 88173; 88305

== ENCOUNTER 2023-04-10 11:15 | Outpatient (CLI) | payer MEDICARE, SELFPAY ==
--- NOTE | ~2023-04-10 | MMUS_ITS ---
EXAMINATION: MM diagnostic juanpablo BI w gold, US breast BI complete HISTORY: Developing bilateral nodular asymmetries reported on 03/20/2023 screening mammogram TECHNIQUE: Additional 3-D tomosynthesis images of both breasts were performed and synthetic 2-D image s were generated. CAD analysis was submitted and interpreted. High resolution bilateral complete lisa st examination including all 4 quadrants and subareolar areas was performed. COMPARISON: 03/20/2023 bilateral screening mammogram 02/01/2021 diagnostic right mammogram and limited right breast ultrasound 12/27/2020 bilateral screening mammogram FINDINGS: MAMMOGRAPHIC FINDINGS: Mildly nodular fibroglandular stroma is noted. Circumscribed approximately 3.5 mm density is noted in the anterior mid upper left breast, with benig n mammographic features No suspicious mass or architectural distortion is evident. No malignant calcification, skin thickenin g or retraction. ULTRASOUND: Approximately 3 mm circumscribed sonolucency of left breast at 12:00, corresponding to the nodular ma mmographic density, likely a small cyst. No suspicious mass or shadowing of either breast is noted. IMPRESSION: 1. Benign findings; no mammographic or sonographic evidence of malignancy 2. Routine annual mammographic screening is recommended BI-RADS Category 2: Benign finding(s). Reviewed, dictated and finalized at location A. IMPRESSION: 1. Benign findings; no mammographic or sonographic evidence of malignancy 2. Routine annual mammographic screening is recommended BI-RADS Category 2: Benign finding(s).
== END 2023-04-10 11:16 | disposition home or self-care (01) ==
PROVIDERS: PCP Family Medicine; Visit Provider Physician Assistant
DX: R92.8 Other abnormal and inconclusive findings on diagnostic imaging of breast (principal)
CPT/HCPCS: 76641; 77062; 77066; G0279

== ENCOUNTER 2023-06-14 09:40 | Outpatient (CLI) | payer MEDICARE, SELFPAY ==
[2023-06-14 10:06] LABS: Hematocrit 42.4 % (37.0-47.0); Hemoglobin 14.1 g/dL (12.0-15.0); Mean Corpuscular HGB Conc 33.3 g/dl (32-36); Mean Corpuscular Hemoglobin 29.1 pg (26-34); Mean Corpuscular Volume 87.4 fl (80-100); Mean Platelet Volume 9.7 fl (7.4-10.4); Platelet Count Result 289 k/mm3 (150-375); Red Blood Count 4.85 M/mm3 (4.2-5.4); Red Cell Distribution Width 11.9 % (11.5-14.5); White Blood Count 5.9 K/mm3 (4.5-10.0)
[2023-06-14 10:19] LABS: Alanine Aminotransferase 20 U/L (6-35); Albumin Level 4.2 g/dL (3.5-5.1); Alkaline Phosphatase 85 U/L (38-126); Anion Gap 5 mmol/L (8-16); Aspartate Amino Transferase 25 U/L (14-36); Bilirubin,Total 0.5 mg/dL (0.2-1.3); Blood Urea Nitrogen 18 mg/dL (7-17); Calcium 9.4 mg/dL (8.4-10.2); Carbon Dioxide 27 mmol/L (22-30); Chloride 108 mmol/L (98-107); Cholesterol 202 mg/dL (0-200); Estimated Glomerular Filt Rate > 60; Glucose 107 mg/dL (65-110); HDL Direct 52 mg/dL; Sodium 140 mmol/L (137-145); Triglycerides 83 mg/dL (<150)
[2023-06-14 10:30] LABS: LDL Cholesterol Direct 112 mg/dL
[2023-06-14 11:57] LABS: Vitamin D 25 Hydroxy 76.4 ng/mL
[2023-06-14 12:45] LABS: Hemoglobin A1C 5.2 % (<5.7)
== END 2023-06-14 09:41 | disposition home or self-care (01) ==
LOC: ANHLAB 09:41
PROVIDERS: PCP Family Medicine; Visit Provider Family Medicine
DX: E55.9 Vitamin D deficiency, unspecified (principal); E78.2 Mixed hyperlipidemia; E87.1 Hypo-osmolality and hyponatremia; R73.9 Hyperglycemia, unspecified
CPT/HCPCS: 36415; 80053; 80061; 82306; 83036; 85027

== ENCOUNTER 2024-02-26 06:55 | Outpatient (CLI) | payer MEDICARE, SELFPAY ==
[2024-02-26 07:41] LABS: Alanine Aminotransferase 23 U/L (6-35); Albumin Level 4.2 g/dL (3.5-5.1); Alkaline Phosphatase 72 U/L (38-126); Anion Gap 6 mmol/L (4-12); Aspartate Amino Transferase 35 U/L (14-36); Bilirubin,Total 0.4 mg/dL (0.2-1.3); Blood Urea Nitrogen 20 mg/dL (7-17); Calcium 9.4 mg/dL (8.4-10.2); Carbon Dioxide 30 mmol/L (22-30); Chloride 102 mmol/L (98-107); Cholesterol 217 mg/dL (0-200); Estimated Glomerular Filt Rate > 60; Glucose 99 mg/dL (65-110); HDL Direct 70 mg/dL; Potassium 3.9 mmol/L (3.4-5.0); Sodium 138 mmol/L (137-145); Triglycerides 94 mg/dL (<150)
[2024-02-26 07:52] LABS: LDL Cholesterol Direct 125 mg/dL
[2024-02-26 08:11] LABS: Thyroid Stimulating Hormone 0.206 uIU/mL (0.465-4.680)
[2024-02-26 08:24] LABS: Free T4 Free Thyroxine 1.28 ng/mL (0.78-2.19)
[2024-02-26 10:28] LABS: Hemoglobin A1C 5.5 % (<5.7)
[2024-02-28 02:44] LABS: Triiodothyronine T3 Free 3.6 pg/mL (2.3-4.2)
== END 2024-02-26 06:56 | disposition home or self-care (01) ==
PROVIDERS: PCP Family Medicine; Visit Provider Internal Medicine Endocrinology, Diabetes & Metabolism
DX: E04.9 Nontoxic goiter, unspecified (principal); E04.1 Nontoxic single thyroid nodule; E05.90 Thyrotoxicosis, unspecified without thyrotoxic crisis or storm; R73.9 Hyperglycemia, unspecified; E78.2 Mixed hyperlipidemia
CPT/HCPCS: 36415; 80053; 80061; 83036; 84439; 84443; 84481

== ENCOUNTER 2024-05-06 10:07 | Outpatient (CLI) | payer MEDICARE, SELFPAY ==
--- NOTE | ~2024-05-06 | MM_ITS ---
EXAMINATION: MM screening juanpablo BI w gold HISTORY: Screening TECHNIQUE: Craniocaudal and mediolateral oblique 3-D tomosynthesis images were obtained and synthetic 2-D images were generated. CAD analysis was submitted and interpreted. COMPARISON: Comparison to multiple prior studies sequentially, with oldest reviewed study dated 08/11. BREAST PARENCHYMAL COMPOSITION: Not Dense: The breasts are almost entirely fatty. FINDINGS: There is no evidence of suspicious mass, calcification, or architectural distortion to sugg est malignancy in either breast. There has been no suspicious interval change. IMPRESSION: 1. No mammographic evidence of malignancy. 2. Recommend routine screening mammography in one year. BI-RADS Category 1: Negative Reviewed, dictated and finalized at location B. PMENT [id number]
== END 2024-05-06 10:08 | disposition home or self-care (01) ==
LOC: ANHIMG 10:08
PROVIDERS: PCP Family Medicine; Visit Provider Family Medicine
DX: Z12.31 Encounter for screening mammogram for malignant neoplasm of breast (principal)
CPT/HCPCS: 77063; 77067

== ENCOUNTER 2025-03-03 06:55 | Outpatient (CLI) | payer MEDICARE, SELFPAY ==
--- NOTE | ~2025-03-03 | DEXA_ITS ---
Bone Density Report Name: MARGARITA SR Age: 69 Sex: Female Ethnicity: White Date of : 1955 Indication: hyperparathyroidism; height loss; Referring Provider: CEE MEJIA Study: Bone densitometry was performed. Exam Date: March 03, 2025 Accession number: [id number] Bone Density: Region BMD T-score Z-score Classification AP Spine(L1-L4) 0.925 -1.1 1.0 Osteopenia Femoral Neck (Left) 0.698 -1.4 0.4 Osteopenia Total Hip (Left) 0.784 -1.3 0.2 Osteopenia World Health Organization criteria for BMD impression classify patients as: Normal (T-score at or above -1.0), Osteopenia (T-score between -1.0 and -2.5), or Osteoporosis (T-score at or below -2.5). 10-year Fracture Risk(1): Major Osteoporotic Fracture 9.0% Hip Fracture 1.1% Reported Risk Factors: [place] (), Neck BMD=0.698, BMI=31.2 (1) FRAX(R) Version 3.08. Fracture probability calculated for an untreated patient. Fracture probability may be lower if the patient has received treatment. Clinical Information Provided by Patient: Has used the following medications: Vitamin D Has the following medical conditions: Hyperparathyroidism Patient maximum height was 66 Menopause Age: 56 No regular weight bearing exercise Onset of menses at age 12 Number of children 3 Impression: The patient has low bone mass, based on the Left Femoral Neck T-score. The patient has an estimated ten-year risk of hip fracture of 1.1% and an estimated ten-year risk of major fracture of 9%, based on the WHO FRAX algorithm. Discussion: BONE DENSITY IS LOW AT ONE OR MORE SKELETAL SITES. This patient's lowest T-score is low at one or more skeletal sites. It meets the World Health Organization's (WHO) criteria for ?low bone mass? (T-score between -1.0 and -2.5). The patient's 10-year risk of fracture as calculated by FRAX is less than the threshold where pharmacological therapy is recommended by the National Osteoporosis Foundation (NOF). However, all treatment decisions require clinical judgment and consideration of individual patient factors, including patient preferences, comorbidities, previous drug use, risk factors not captured in the FRAX model (e.g., frailty, falls, vitamin D deficiency, increased bone turnover, interval significant decline in bone density) and possible under or overestimation of fracture risk by FRAX. The patient should follow a healthful lifestyle (good nutrition with adequate calcium and vitamin D, and appropriate weight-bearing exercise). Follow-Up: Consider repeating this study in 2 to 3 years to reassess this patient's status, or sooner if there is some new clinical indication. Reported by: ARSEN on 03/03/2025 2:32:00 PM. Reviewed, dictated and finalized at location A.
--- NOTE | ~2025-03-03 | US_ITS ---
US thyroid INDICATION: Dysphasia and enlarged thyroid. TECHNIQUE: Real-time sonographic images of the thyroid gland were obtained. COMPARISON: Thyroid ultrasound 03/01/2023 FINDINGS: The right thyroid lobe measures 3.3 x 5.1 x 1.9 cm. The left thyroid lobe measures 2.6 x 2.0 x 4.9 cm. There is a 2.4 x 1.3 cm solid nodule in the right thyroid lobe with a few punctate echogenic foci possibly calcifications. A fine-needle aspiration is recommended if not performed. There is a 3.0 x 2.0 cm heterogeneous nodule in the right thyroid lobe with a few punctate echogenic foci possibly calcifications. A fine-needle aspiration is recommended if not performed. There is a 9 x 7 x 6 mm partially cystic, partially solid nodule in the left mid thyroid lobe. There are a few additional bilateral thyroid nodules. IMPRESSION: 1. Multinodular goiter. The finding are similar to the study from 03/01/2023. 2. There is a 3.0 cm right thyroid nodule. A fine-needle aspiration is recommended if not already performed. 3. There is a 2.4 cm right thyroid nodule. A fine-needle aspiration is recommended if not already performed. Consider a thyroid scan to assess for a cold thyroid nodule. Reviewed, dictated and finalized at location Q. IMPRESSION: 1. Multinodular goiter. The finding are similar to the study from 03/01/2023. 2. There is a 3.0 cm right thyroid nodule. A fine-needle aspiration is recommen ded if not already performed. 3. There is a 2.4 cm right thyroid nodule. A fine-needle aspiration is recommen ded if not already performed. Consider a thyroid scan to assess for a cold thyroid nodule.
--- OUTSIDE RECORDS SUMMARY | 2025-03-03 06:58 | XMS_ITS | Clinical Summary ---
[facility] Organization [facility] Address [address] [place] [address] Care Team Providers Care Global Creative Chairman Name Role Phone Shirlene Cerrato MD Primary Care Provider [phone] Allergies Active Allergy Reactions Criticality Noted Date Comments Thiopental Sodium Vomiting Low 06/09/2021 Medications lisinopril (PRINIVIL,ZESTR IL) 10 mg tablet Take 10 mg by mouth daily. Active aspirin 81 mg enteric coated tablet Take 81 mg by mouth daily Active docusate sodium (COLACE) 100 mg capsuleIndicati ons:constipatio n Take 100 mg by mouth 2 (two) times a day Active carboxymethylce llulose-glycern 0.5-0.9 % drops Administer into affected eye(s) Active acetaminophen ER (TYLENOL) 650 mg 8 hr tablet Take 650 mg by mouth every 8 (eight) hours as needed for pain Active cholecalciferol (VITAMIN D-3) 5,000 unit tablet Active Active Problems Problem Noted Date Diagnosed Date Right bundle branch block 06/09/2021 Shortness of breath 09/27/2017 Surgical History Surgery Date Site/Laterality Comments TONSILLECTOMY ARTHROSCOPIC SURGERY TUBAL LIGATION Medical History Medical History Date Comments Hypertension Family History Medical History Relation Name Comments Heart failure Father Other Father Heart failure Mother Kidney failure Mother Relation Name Status Comments Father Mother Social History Tobacco Use Types Packs/Day Years Used Date Smoking Tobacco: Never Smokeless Tobacco: Never Alcohol Use Standard Drinks/Week Comments Yes 0 (1 standard drink = 0.6 oz pur e alcohol) Personal Safety Answer Date Recorded Getting School Help Needed Not on file 08/31 Comments Unknown Sex and Gender Information Value Date Recorded Sex Assigned at Not on file Legal Sex Female 2:17 PM [employer] REPORTER Gender Identity Not on file Sexual Orientation Not on file Obstetrics History Last Filed Vital Signs Vital Sign Reading Time Taken Comments Blood Pressure 130/76 06/09/2021 4:04 PM [employer] REPORTER Pulse 95 06/09/2021 4:04 PM [employer]ILE REPORTER Temperature - - Respiratory Rate - - Oxygen Saturation 98% 06/09/2021 4:04 PM [employer]ILE REPORTER Inhaled Oxygen Concentration - - Weight 77.6 kg (171 lb) 06/09/2021 4:04 PM [employer]ILE REPORTER Height 165.1 cm (5' 5) 06/09/2021 4:04 PM MERCANTILE REPORTER Body Mass Index 28.46 06/09/2021 4:04 PM [employer]CANTILE REPORTER Plan of Treatment Not on file Insurance MEDICARE [employer] S[employer]IOR [employer]MENT Care Teams Global Creative Chairman Relationship Specialty Start Date End Date Shirlene Cerrato MD PCP - General Family Medicine 06/09/21
[2025-03-03 07:48] LABS: Hematocrit 40.4 % (37.0-47.0); Hemoglobin 13.3 g/dL (12.0-15.0); Immature Granulocyte Percent A 0.3 % (0-0.5); Lymphocytes Absolute Auto 1.49 K/mm3 (0.9-3.2); Mean Corpuscular HGB Conc 32.9 g/dl (32-36); Mean Corpuscular Hemoglobin 29.2 pg (26-34); Mean Corpuscular Volume 88.6 fl (80-100); Nucleated Red Blood Cells Absolute Auto 0.000 K/mm3 (0.0-0.012); Nucleated Red Blood Cells Perc 0.0 % (0.0-0.2); Platelet Count Result 261 k/mm3 (150-375); Red Blood Count 4.56 M/mm3 (4.2-5.4); White Blood Count 6.2 K/mm3 (4.5-10.0)
[2025-03-03 08:13] LABS: Alanine Aminotransferase 21 U/L (6-35); Albumin Level 4.1 g/dL (3.5-5.1); Alkaline Phosphatase 81 U/L (38-126); Anion Gap 6 mmol/L (4-12); Aspartate Amino Transferase 22 U/L (14-36); Bilirubin,Total 0.3 mg/dL (0.2-1.3); Blood Urea Nitrogen 18 mg/dL (7-17); Calcium 9.3 mg/dL (8.4-10.2); Carbon Dioxide 25 mmol/L (22-30); Chloride 105 mmol/L (98-107); Cholesterol 222 mg/dL (0-200); Estimated Glomerular Filt Rate > 60; Glucose 103 mg/dL (65-110); HDL Direct 60 mg/dL; Potassium 4.2 mmol/L (3.4-5.0); Sodium 136 mmol/L (137-145); Total Protein 7.1 g/dL (6.3-8.2); Triglycerides 97 mg/dL (<150)
[2025-03-03 08:33] LABS: Free T4 Free Thyroxine 1.32 ng/dL (0.78-2.19)
[2025-03-03 08:43] LABS: Thyroid Stimulating Hormone 0.543 uIU/mL (0.465-4.680)
[2025-03-03 09:02] LABS: Hemoglobin A1C 5.3 % (<5.7)
[2025-03-04 13:08] LABS: Triiodothyronine (T3), Free 3.1 pg/mL (2.0-4.4)
== END 2025-03-03 06:56 | disposition home or self-care (01) ==
PROVIDERS: PCP Family Medicine; Referring Provider Family Medicine; Visit Provider Internal Medicine Endocrinology, Diabetes & Metabolism
DX: Z78.0 Asymptomatic menopausal state (principal); R53.83 Other fatigue; E78.2 Mixed hyperlipidemia; Z13.1 Encounter for screening for diabetes mellitus; E04.1 Nontoxic single thyroid nodule; E55.9 Vitamin D deficiency, unspecified; E05.90 Thyrotoxicosis, unspecified without thyrotoxic crisis or storm; M85.88 Other specified disorders of bone density and structure, other site; M85.852 Other specified disorders of bone density and structure, left thigh
CPT/HCPCS: 36415; 76536; 77080; 80053; 80061; 83036; 83520; 84439; 84443; 84445; 84481; 85025

== ENCOUNTER 2025-03-16 10:26 | Outpatient (CLI) | payer MEDICARE, SELFPAY ==
--- OUTSIDE RECORDS SUMMARY | 2025-03-16 11:57 | XMS_ITS | Clinical Summary ---
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 Gender Identity Not on file Sexual Orientation Not on file Obstetrics History Last Filed Vital Signs Vital Sign Reading Time Taken Comments Blood Pressure 130/76 06/09/2021 4:04 PM MATERIAL WORKER Pulse 95 06/09/2021 4:04 PM MATERIAL WORKER Temperature - - Respiratory Rate - - Oxygen Saturation 98% 06/09/2021 4:04 PM MATERIAL WORKER Inhaled Oxygen Concentration - - Weight 77.6 kg (171 lb) 06/09/2021 4:04 PM 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
== END 2025-03-16 10:27 | disposition home or self-care (01) ==
PROVIDERS: PCP Family Medicine
DX: Z13.9 Encounter for screening, unspecified (principal); Z82.5 Family history of asthma and other chronic lower respiratory diseases
CPT/HCPCS: 82103